=== PATIENT | female | born 1990 | race Caucasian/White ===

== ENCOUNTER 2016-12-06 08:26 | Emergency (ER) | payer OTHER ==
[2016-12-06] MEDS ORDERED: ONDANSETRON 4 MG/2 ML VIAL IVP STA (08:46)
[2016-12-06] MEDS ORDERED: SODIUM CHLORIDE 0.9% 1,000 ML IV STA ×2 (08:46)
[2016-12-06] MEDS ORDERED: HYDROmorphone 1 MG/ML 1 ML SYRINGE IVP STA (08:46)
--- NOTE | 2016-12-06 08:48 | ED ---
General Adult HPI <Otis Husain - Last Filed: 12/06/16 12:07> - General Source: patient, RN notes reviewed Mode of arrival: ambulatory Limitations: no limitations <Sanjay Guerra - Last Filed: 12/06/16 12:48> - General Chief complaint: Abdominal Pain Stated complaint: ABDOMINAL PAIN Time Seen by Provider: 12/06/16 08:38 - History of Present Illness Initial comments: Patient is a 26-year-old female who presents emergency room today with chief complaint of right lower quadrant pain that started approximately 2 AM. She does admit to a "sharp" type pain located in the right lower quadrant. Denies radiation. Currently rates an 07/05. States did have similar pain once in the past with an ovarian cyst. States this does feel worse. Patient also admits that she's noticed some swelling to her hands and legs bilaterally over the last 2-3 days. Patient does admit to feeling nauseous. She denies any other complaints currently. Patient denies any recent fever, chills, shortness of breath, chest pain, back pain, vomiting, numbness or tingling, dysuria or hematuria, constipation or diarrhea, headaches or visual changes, or any other complaints. (Sanjay Guerra) - Related Data Previous Rx's Medication Instructions Recorded Nitrofurantoin Monohyd/M-Cryst 100 mg PO Q12HR #14 cap 12/06/16 [Macrobid] Ondansetron Odt [Zofran ODT] 4 mg PO Q8HR PRN #15 tab 12/06/16 Allergies Allergy/AdvReac Type Severity Reaction Status Date / Time No Known Allergies Allergy Verified 12/06/16 08:51 Review of Systems ROS Other: All systems not noted in ROS Statement are negative. <Otis Husain - Last Filed: 12/06/16 12:07> ROS Other: All systems not noted in ROS Statement are negative. <Sanjay Guerra - Last Filed: 12/06/16 12:48> ROS Statement: Those systems with pertinent positive or pertinent negative responses have been documented in the HPI. Past Medical History Past Medical History: Asthma, Deep Vein Thrombosis (DVT), Osteoarthritis (OA) Additional Past Medical History / Comment(s): HX OF MIGRAINES, DVT LEFT GROIN ( 2009), ACTIVITY INDUCED ASTHMA (NO RX), BACK PROBLEMS. History of Any Multi-Drug Resistant Organisms: None Reported Past Surgical History: Adenoidectomy, Breast Surgery, Orthopedic Surgery, Tonsillectomy, Tubal Ligation Additional Past Surgical History / Comment(s): BREAST Bx, MULTIPLE KNEE SURGERYS. Past Anesthesia/Blood Transfusion Reactions: Postoperative Nausea & Vomiting ( PONV) Past Psychological History: Anxiety Smoking Status: Light tobacco smoker Past Alcohol Use History: Rare Additional Past Alcohol Use History / Comment(s): SMOKES 5-6 CIGARETTES / DAYSTARTED SMOKING AT 16 YRS OLD. Past Drug Use History: None Reported - Past Family History Mother Family Medical History: No Reported History, Hypertension <Sanjay Guerra - Last Filed: 12/06/16 12:48> General Exam <Otis Husain - Last Filed: 12/06/16 12:07> Limitations: no limitations <Sanjay Guerra - Last Filed: 12/06/16 12:48> - General Exam Comments Initial Comments: General: The patient is awake and alert, in no distress, and does not appear acutely ill. Eye: Pupils are equal, round and reactive to light, extra-ocular movements are intact. No nystagmus. There is normal conjunctiva bilaterally. No signs of icterus. Ears, nose, mouth and throat: There are moist mucous membranes and no oral lesions. Neck: The neck is supple, there is no tenderness or JVD. Cardiovascular: There is a regular rate and rhythm. No murmur, rub or gallop is appreciated. Respiratory: Lungs are clear to auscultation, respirations are non-labored, breath sounds are equal. No wheezes, stridor, rales, or rhonchi. Gastrointestinal: Abdomen appears distended. Normal bowel sounds. Abdomen soft on palpation. Patient does have mild tenderness right lower quadrant. No rebound tenderness. No guarding. No CVA tenderness. Musculoskeletal: Normal ROM, no tenderness. Strength 5/5. Sensation intact. Pulses equal bilaterally 2+. Neurological: A&O x 3. CN II-XII intact, There are no obvious motor or sensory deficits. Coordination appears grossly intact. Speech is normal. Skin: Skin is warm and dry and no rashes or lesions are noted. Psychiatric: Cooperative, appropriate mood & affect, normal judgment. (Sanjay Guerra) Medical Decision Making - Lab Data Result diagrams: 12/06/16 09:21 12/06/16 09:21 <Otis Husain - Last Filed: 12/06/16 12:07> - Lab Data Result diagrams: 12/06/16 09:21 12/06/16 09:21 <Sanjay Guerra - Last Filed: 12/06/16 12:48> - Medical Decision Making The patient was seen and examined. All diagnostics were reviewed. I have discussed the case with the PA and agree with the findings as documented. (Otis Husain) Patient's CAT scan was reviewed shows no evidence of acute appendicitis. Results were discussed with the patient. Patient has declined pelvic exam here in the emergency room. Patient's urinalysis does reveal a few white cells. Will be started on antibiotics cover for urinary tract infection. She is advised follow-up the family doctor over the next 2 days. Advised return if any symptoms increase or worsen or for any other concerns. (Sanjay Guerra) - Lab Data Lab Results 12/06/16 12/06/16 12/06/16 Range/Units 09:21 09:21 09:21 WBC 5.0 (3.8-10.6) k/uL RBC 4.17 (3.80-5.40) m/uL Hgb 13.4 (11.4-16.0) gm/dL Hct 40.5 (34.0-46.0) % MCV 97.1 (80.0-100.0) fL MCH 32.2 (25.0-35.0) pg MCHC 33.1 (31.0-37.0) g/dL RDW 12.7 (11.5-15.5) % Plt Count 226 (150-450) k/uL Neutrophils % (Manual) 53.0 % Lymphocytes % (Manual) 39.0 % Monocytes % (Manual) 8.0 % Neutrophils # (Manual) 2.7 (1.3-7.7) k/uL Lymphocytes # (Manual) 2.0 (1.0-4.8) k/uL Monocytes # (Manual) 0.4 (0-1.0) k/uL Nucleated RBCs 0 (0-0) /100 WBC Manual Slide Review Performed Sodium 140 (137-145) mmol/L Potassium 4.0 (3.5-5.1) mmol/L Chloride 105 (98-107) mmol/L Carbon Dioxide 26 (22-30) mmol/L Anion Gap 9 mmol/L BUN 14 (7-17) mg/dL Creatinine 0.68 (0.52-1.04) mg/dL Est GFR (MDRD) Af Amer >60 (>60 ml/min/1.73 sqM) Est GFR (MDRD) Non-Af >60 (>60 ml/min/1.73 sqM) Glucose 88 (74-99) mg/dL Plasma Lactic Acid Enzo (0.7-2.0) mmol/L Calcium 9.5 (8.4-10.2) mg/dL Total Bilirubin 0.5 (0.2-1.3) mg/dL AST 13 L (14-36) U/L ALT 24 (9-52) U/L Alkaline Phosphatase 46 (38-126) U/L Total Protein 6.8 (6.3-8.2) g/dL Albumin 4.2 (3.5-5.0) g/dL Amylase 34 (30-110) U/L Lipase 110 (23-300) U/L Urine Color Urine Appearance (Clear) Urine pH (5.0-8.0) Ur Specific [place] (1.001-1.035) Urine Protein (Negative) Urine Glucose (UA) (Negative) Urine Ketones (Negative) Urine Blood (Negative) Urine Nitrate (Negative) Urine Bilirubin (Negative) Urine Urobilinogen (<2.0) mg/dL Ur Leukocyte Esterase (Negative) Urine RBC (0-5) /hpf Urine WBC (0-5) /hpf Ur Squamous Epith Cells (0-4) /hpf Urine Bacteria (None) /hpf Hyaline Casts (0-2) /lpf Urine Mucus (None) /hpf Urine HCG, Qual Not Detected (Not Detectd) 12/06/16 12/06/16 Range/Units 09:21 09:21 WBC (3.8-10.6) k/uL RBC (3.80-5.40) m/uL Hgb (11.4-16.0) gm/dL Hct (34.0-46.0) % MCV (80.0-100.0) fL MCH (25.0-35.0) pg MCHC (31.0-37.0) g/dL RDW (11.5-15.5) % Plt Count (150-450) k/uL Neutrophils % (Manual) % Lymphocytes % (Manual) % Monocytes % (Manual) % Neutrophils # (Manual) (1.3-7.7) k/uL Lymphocytes # (Manual) (1.0-4.8) k/uL Monocytes # (Manual) (0-1.0) k/uL Nucleated RBCs (0-0) /100 WBC Manual Slide Review Sodium (137-145) mmol/L Potassium (3.5-5.1) mmol/L Chloride (98-107) mmol/L Carbon Dioxide (22-30) mmol/L Anion Gap mmol/L BUN (7-17) mg/dL Creatinine (0.52-1.04) mg/dL Est GFR (MDRD) Af Amer (>60 ml/min/1.73 sqM) Est GFR (MDRD) Non-Af (>60 ml/min/1.73 sqM) Glucose (74-99) mg/dL Plasma Lactic Acid Enzo <0.5 L (0.7-2.0) mmol/L Calcium (8.4-10.2) mg/dL Total Bilirubin (0.2-1.3) mg/dL AST (14-36) U/L ALT (9-52) U/L Alkaline Phosphatase (38-126) U/L Total Protein (6.3-8.2) g/dL Albumin (3.5-5.0) g/dL Amylase (30-110) U/L Lipase (23-300) U/L Urine Color Yellow Urine Appearance Cloudy H (Clear) Urine pH 5.0 (5.0-8.0) Ur Specific [place] 1.021 (1.001-1.035) Urine Protein Negative (Negative) Urine Glucose (UA) Negative (Negative) Urine Ketones Negative (Negative) Urine Blood Negative (Negative) Urine Nitrate Negative (Negative) Urine Bilirubin Negative (Negative) Urine Urobilinogen <2.0 (<2.0) mg/dL Ur Leukocyte Esterase Large H (Negative) Urine RBC 3 (0-5) /hpf Urine WBC 8 H (0-5) /hpf Ur Squamous Epith Cells 7 H (0-4) /hpf Urine Bacteria Rare H (None) /hpf Hyaline Casts 1 (0-2) /lpf Urine Mucus Rare H (None) /hpf Urine HCG, Qual (Not Detectd) Disposition <Otis Husain - Last Filed: 12/06/16 12:07> Time of Disposition: 12:47 <Sanjay Guerra - Last Filed: 12/06/16 12:48> Clinical Impression: Abdominal pain, UTI (urinary tract infection) Disposition: HOME SELF-CARE Condition: Good Instructions: Abdominal Pain (ED) Additional Instructions: Please use medication as discussed. Please follow-up with family doctor in the next 2 days of symptoms have not improved. Please return to emergency room if the symptoms increase or worsen or for any other concerns. Prescriptions: Nitrofurantoin Monohyd/M-Cryst [Macrobid] 100 mg PO Q12HR #14 cap Ondansetron Odt [Zofran ODT] 4 mg PO Q8HR PRN #15 tab PRN Reason: Nausea
[2016-12-06 09:46] LABS: Appearance,Urine Cloudy (Clear); Bacteria,Urine Rare /hpf; Bilirubin,Urine Negative (Negative); Glucose,Urine (UA) Negative (Negative); Ketones,Urine Negative (Negative); Leukocyte Esterase,Urine Large (Negative); Mucus,Urine Rare /hpf; Nitrite,Urine Negative (Negative); Particle Count 8693; Protein,Urine Negative (Negative); RBC,Urine 3 /hpf (0-5); Specific Gravity,Urine 1.021 (1.001-1.035); Squamous Epithelial Cell,Urine 7 /hpf (0-4); UA Billing (MACRO vs. MICRO) MICRO; Urobilinogen,Urine <2.0 mg/dL (<2.0); WBC,Urine 8 /hpf (0-5)
[2016-12-06 09:49] LABS: ALT 24 U/L (9-52); AST 13 U/L (14-36); Alkaline Phosphatase 46 U/L (38-126); Amylase 34 U/L (30-110); Anion Gap 9 mmol/L; Blood Urea Nitrogen 14 mg/dL (7-17); Calcium 9.5 mg/dL (8.4-10.2); Carbon Dioxide 26 mmol/L (22-30); Chloride 105 mmol/L (98-107); Glucose 88 mg/dL (74-99); Non-African American GFR(MDRD) >60 (>60 ml/min/1.73 sqM); Sodium 140 mmol/L (137-145); Total Bilirubin 0.5 mg/dL (0.2-1.3); Total Protein 6.8 g/dL (6.3-8.2)
[2016-12-06 09:50] LABS: Aty Lym Flag Slight; CH 33.5; CHCM 34.7; HCT 40.5 % (34.0-46.0); HDW 2.28; HGB 13.4 gm/dL (11.4-16.0); MCH 32.2 pg (25.0-35.0); MCHC 33.1 g/dL (31.0-37.0); MCV 97.1 fL (80.0-100.0); Mean Platelet Volume 8.1; RBC 4.17 m/uL (3.80-5.40); RDW 12.7 % (11.5-15.5); WBC (Perox) 5.08
[2016-12-06 10:18] LABS: Add Differential Manual Differential
[2016-12-06 10:21] LABS: Manual Review Performed; Nucleated Red Blood Cells 0 /100 WBC (0-0); Total Cells Counted 100
--- NOTE | 2016-12-06 11:04 | US ---
EXAMINATION TYPE: US abdomen APPY DATE OF EXAM: 12/06/2016 9:55 AM COMPARISON: NONE CLINICAL HISTORY: US. RLQ pain since 2 am this morning APPENDIX AP Diameter (normal < 6mm): 0.3 cm Measured outer wall to outer wall. Is the appendix seen in its entirety from the proximal cecum to distal end: yes Is the appendix compressible: yes Does the appendix wall appear hypervascular: no Is an appendicolith present: yes Is there inflammatory changes or free fluid present: no TECHNOLOGIST IMPRESSION: The appendix appears to be visualized and appears normal. IMPRESSION: 1. Technologist reports an appendicolith. Additional findings to suggest acute appendicitis however n ot identified. Clinical decision for management should be based on the clinical findings.
--- NOTE | 2016-12-06 11:05 | US ---
EXAMINATION TYPE: US transvaginal DATE OF EXAM: 12/06/2016 10:21 AM COMPARISON: Prior on PACs CLINICAL HISTORY: US. Patient awoke at 2 am with RLQ pain. TECHNIQUE: Transvaginal (TV) Date of LMP: Unknown; sometime in mid October EXAM MEASUREMENTS: Uterus: 9.5 x 5.1 x 6.5 cm Endometrial Stripe: 0.5 cm Right Ovary: 2.9 x 2.9 x 2.1 cm Left Ovary: Not seen st this time FINDINGS: TECHNOLOGIST IMPRESSION: Limited to bladder fill and bowel gas. 1. Uterus: Anteverted Appear wnl 2. Endometrium: Appear wnl 3. Right Ovary: Obscured by overlying bowel gas, seen TA and portions visualized appear wnl 4. Left Ovary: not seen due to overlying bowel gas Spectral, color and waveform doppler imaging shows good arterial and venous flow within the right o vary; there is no evidence for ovarian torsion. 5. Bilateral Adnexa: Appear wnl 6. Posterior cul-de-sac: Small traces of free fluid noted IMPRESSION: 1. Nabothian cyst at the cervix. 2. Normal transvaginal pelvic ultrasound Normal Values: Uterine Length: < 10cm Endometrium: Proliferative (Day 6 ? 14): 4 ? 6mm Secretory (Day 15 ? 28): 7 ? 14mm Post Menopausal (and not symptomatic): up to 8mm Post Menopausal (with vaginal bleeding): upper limits <5mm Post Menopausal with HRT: upper limits 8 - 15mm Post Menopausal with tamoxifen: < 6mm (although 50% of those receiving tamoxifen have been reported t o have thickness >8mm)
[2016-12-06] MEDS ORDERED: RX INFO: IV CONTRAST WAS GIVEN 1 EACH MISC MISCELLANE PRN (11:42)
--- NOTE | 2016-12-06 12:39 | CT ---
EXAMINATION TYPE: CT abdomen pelvis w con DATE OF EXAM: 12/06/2016 12:23 PM COMPARISON: NONE INDICATION: Right lower quadrant pain and right groin pain. DLP: 348.9 mGycm, Automated exposure control for dose reduction was used. CONTRAST: 100 mL of Omnipaque 300. Study performed without Oral Contrast TECHNIQUE: Axial images were obtained from above the diaphragm to the pubic rami in the axial plane a t 5 mm thick sections. Reconstructed images are reviewed on the computer in the coronal plane. FINDINGS: Limited CT sections are obtained the lung bases. The lung bases are clear. CT ABDOMEN: Liver: Normal Spleen: Normal Pancreas: Normal Adrenal glands: The adrenal glands are normal. Gallbladder: Normal Kidneys: No masses are evident. No hydronephrosis is present. No cysts are present. Delayed images were obtained through the kidneys, which remain unremarkable. Aorta: Normal Inferior vena cava: Normal. CT PELVIS: Loops of bowel within the abdomen and pelvis are normal. Appendix: Normal as visualized. Urinary bladder: Normal. Genitourinary structures: Uterus is unremarkable. Adnexal regions are clear. No free fluid is within the pelvis. Osseous structures: No suspicious lytic or sclerotic lesions. IMPRESSIONS: 1. Unremarkable CT abdomen pelvis. The appendix appears normal.
[2016-12-06 13:01] VITALS: BP 105/67; PULSE 71; RESP 16; TEMP 97
== END 2016-12-06 12:57 | disposition home or self-care (01) ==
LOC: EC 08:26
DX: N39.0 Urinary tract infection, site not specified (principal); N88.8 Other specified noninflammatory disorders of cervix uteri; F17.200 Nicotine dependence, unspecified, uncomplicated
CPT/HCPCS: 99284; 96374; 96375; 96361 ×4; 36415; 80053; 82150; 83605; 83690; 85025; 81001; 81025; 93976; 76705; 76830; 74177; J2405; J1170; Q9967

== ENCOUNTER 2017-02-18 20:40 | Emergency (ER) | payer OTHER ==
[2017-02-18] MEDS ORDERED: KETOROLAC 30 MG/ML 1 ML VIAL IVP STA (22:31)
[2017-02-18] MEDS ORDERED: MORPHINE SULFATE 4 MG/ML SYRINGE IV STA (22:31)
[2017-02-18] MEDS ORDERED: SODIUM CHLORIDE 0.9% 1,000 ML IV STA (22:31)
--- NOTE | 2017-02-18 22:33 | ED ---
General Adult HPI - General Chief complaint: Chest Pain Stated complaint: Diff breathing/Chest Pain Time Seen by Provider: 02/18/17 22:19 Source: patient, RN notes reviewed, old records reviewed Mode of arrival: ambulatory Limitations: no limitations - History of Present Illness Initial comments: This is a 26-year-old female ER for evaluation today. Patient comes in the ER for evaluation of multiple complaints, patient has history of asthma, history of blood clot during denies history of at this time. Patient has mild shortness of breath with anterior and substernal chest pain. So that she is never experienced before. Patient also complains of right shoulder and right arm weakness. She is able to move right and does have sensation but is decreased strength compared to left arm. No trauma no headaches and no other neurological complaints. No new medications or change medications patient denies drugs or alcohol - Related Data Previous Rx's Medication Instructions Recorded Nitrofurantoin Monohyd/M-Cryst 100 mg PO Q12HR #14 cap 12/06/16 [Macrobid] Ondansetron Odt [Zofran ODT] 4 mg PO Q8HR PRN #15 tab 12/06/16 Allergies Allergy/AdvReac Type Severity Reaction Status Date / Time No Known Allergies Allergy Verified 12/06/16 08:51 Review of Systems ROS Statement: Those systems with pertinent positive or pertinent negative responses have been documented in the HPI. ROS Other: All systems not noted in ROS Statement are negative. Past Medical History Past Medical History: Asthma, Deep Vein Thrombosis (DVT), Rheumatoid Arthritis ( RA) Additional Past Medical History / Comment(s): HX OF MIGRAINES, DVT LEFT GROIN ( 2009), ACTIVITY INDUCED ASTHMA (NO RX), BACK PROBLEMS. childhood RA History of Any Multi-Drug Resistant Organisms: None Reported Past Surgical History: Adenoidectomy, Breast Surgery, Orthopedic Surgery, Tonsillectomy, Tubal Ligation Additional Past Surgical History / Comment(s): BREAST Bx, MULTIPLE BILAT KNEE SURGERYS. Past Anesthesia/Blood Transfusion Reactions: Postoperative Nausea & Vomiting ( PONV) Past Psychological History: Anxiety Smoking Status: Current every day smoker Past Alcohol Use History: Rare Additional Past Alcohol Use History / Comment(s): SMOKES 5-6 CIGARETTES / DAYSTARTED SMOKING AT 16 YRS OLD. Past Drug Use History: None Reported - Past Family History Mother Family Medical History: No Reported History, Hypertension General Exam Limitations: no limitations General appearance: alert, in no apparent distress Head exam: Present: atraumatic, normocephalic, normal inspection Eye exam: Present: normal appearance, PERRL, EOMI. Absent: scleral icterus, conjunctival injection, periorbital swelling ENT exam: Present: normal exam, mucous membranes moist Neck exam: Present: normal inspection. Absent: tenderness, meningismus, lymphadenopathy Respiratory exam: Present: normal lung sounds bilaterally. Absent: respiratory distress, wheezes, rales, rhonchi, stridor Cardiovascular Exam: Present: regular rate, normal rhythm, normal heart sounds. Absent: systolic murmur, diastolic murmur, rubs, gallop, clicks GI/Abdominal exam: Present: soft, normal bowel sounds. Absent: distended, tenderness, guarding, rebound, rigid Extremities exam: Present: normal inspection, full ROM, normal capillary refill. Absent: tenderness, pedal edema, joint swelling, calf tenderness Back exam: Present: normal inspection Neurological exam: Present: alert, oriented X3, CN II-XII intact Psychiatric exam: Present: normal affect, normal mood Skin exam: Present: warm, dry, intact, normal color. Absent: rash Course Vital Signs 02/18/17 02/19/17 02/19/17 20:49 00:08 00:18 Temperature 99.1 F Pulse Rate 80 80 80 Respiratory 16 Rate Blood Pressure 114/74 O2 Sat by Pulse 99 Oximetry - Reevaluation(s) Reevaluation #1: 02/19/17 00:52 Patient resting comfortably, states symptoms are resolved EKG Findings - EKG Comments: EKG Findings:: EKG shows normal sinus rhythm rate of 60, SC 1:30, QRS 92, QTC 418 Medical Decision Making - Medical Decision Making 26-year-old female year for evaluation of chest pain, substernal chest discomfort or weakness. Tetanus are normal at this point point, patient is resting comfortably states her symptoms have resolved Michelle discharge home, states she is tired and is catchup unrest - Lab Data Result diagrams: 02/18/17 23:00 02/18/17 23:00 Lab Results 02/18/17 02/18/17 02/18/17 Range/Units 23:00 23:00 23:00 WBC 4.0 (3.8-10.6) k/uL RBC 4.16 (3.80-5.40) m/uL Hgb 13.5 (11.4-16.0) gm/dL Hct 39.7 (34.0-46.0) % MCV 95.3 (80.0-100.0) fL MCH 32.3 (25.0-35.0) pg MCHC 33.9 (31.0-37.0) g/dL RDW 12.7 (11.5-15.5) % Plt Count 136 L (150-450) k/uL Neutrophils % (Manual) 40.0 % Lymphocytes % (Manual) 56.0 % Monocytes % (Manual) 4.0 % Neutrophils # (Manual) 1.6 (1.3-7.7) k/uL Lymphocytes # (Manual) 2.2 (1.0-4.8) k/uL Monocytes # (Manual) 0.2 (0-1.0) k/uL Nucleated RBCs 0 (0-0) /100 WBC Manual Slide Review Performed PT (9.0-12.0) sec INR (<1.1) APTT (22.0-30.0) sec D-Dimer (<0.60) mg/L FEU Sodium 141 (137-145) mmol/L Potassium 3.8 (3.5-5.1) mmol/L Chloride 107 (98-107) mmol/L Carbon Dioxide 24 (22-30) mmol/L Anion Gap 10 mmol/L BUN 11 (7-17) mg/dL Creatinine 0.60 (0.52-1.04) mg/dL Est GFR (MDRD) Af Amer >60 (>60 ml/min/1.73 sqM) Est GFR (MDRD) Non-Af >60 (>60 ml/min/1.73 sqM) Glucose 85 (74-99) mg/dL Calcium 8.7 (8.4-10.2) mg/dL Magnesium 1.8 (1.6-2.3) mg/dL Total Bilirubin 0.3 (0.2-1.3) mg/dL AST 22 (14-36) U/L ALT 22 (9-52) U/L Alkaline Phosphatase 40 (38-126) U/L Total Creatine Kinase 47 (30-135) U/L CK-MB (CK-2) <0.2 (0.0-2.4) ng/mL CK-MB (CK-2) Rel Index Troponin I <0.012 (0.000-0.034) ng/mL C-Reactive Protein 5.9 (<10.0) mg/L Total Protein 6.5 (6.3-8.2) g/dL Albumin 3.9 (3.5-5.0) g/dL Lipase 141 (23-300) U/L 02/18/17 Range/Units 23:00 WBC (3.8-10.6) k/uL RBC (3.80-5.40) m/uL Hgb (11.4-16.0) gm/dL Hct (34.0-46.0) % MCV (80.0-100.0) fL MCH (25.0-35.0) pg MCHC (31.0-37.0) g/dL RDW (11.5-15.5) % Plt Count (150-450) k/uL Neutrophils % (Manual) % Lymphocytes % (Manual) % Monocytes % (Manual) % Neutrophils # (Manual) (1.3-7.7) k/uL Lymphocytes # (Manual) (1.0-4.8) k/uL Monocytes # (Manual) (0-1.0) k/uL Nucleated RBCs (0-0) /100 WBC Manual Slide Review PT 10.9 (9.0-12.0) sec INR 1.1 (<1.1) APTT 26.1 (22.0-30.0) sec D-Dimer 0.27 (<0.60) mg/L FEU Sodium (137-145) mmol/L Potassium (3.5-5.1) mmol/L Chloride (98-107) mmol/L Carbon Dioxide (22-30) mmol/L Anion Gap mmol/L BUN (7-17) mg/dL Creatinine (0.52-1.04) mg/dL Est GFR (MDRD) Af Amer (>60 ml/min/1.73 sqM) Est GFR (MDRD) Non-Af (>60 ml/min/1.73 sqM) Glucose (74-99) mg/dL Calcium (8.4-10.2) mg/dL Magnesium (1.6-2.3) mg/dL Total Bilirubin (0.2-1.3) mg/dL AST (14-36) U/L ALT (9-52) U/L Alkaline Phosphatase (38-126) U/L Total Creatine Kinase (30-135) U/L CK-MB (CK-2) (0.0-2.4) ng/mL CK-MB (CK-2) Rel Index Troponin I (0.000-0.034) ng/mL C-Reactive Protein (<10.0) mg/L Total Protein (6.3-8.2) g/dL Albumin (3.5-5.0) g/dL Lipase (23-300) U/L - Radiology Data Radiology results: report reviewed (CT brain is negative for acute disase, CXR is negative), image reviewed Disposition Clinical Impression: Chest pain Disposition: HOME SELF-CARE Condition: Good Instructions: Chest Pain (ED) Referrals: Lynn Andrade MD [Primary Care Provider] - 1-2 days
[2017-02-18 23:29] LABS: Aty Lym Flag Slight; CH 32.9; CHCM 34.7; HCT 39.7 % (34.0-46.0); HDW 2.44; HGB 13.5 gm/dL (11.4-16.0); MCH 32.3 pg (25.0-35.0); MCHC 33.9 g/dL (31.0-37.0); MCV 95.3 fL (80.0-100.0); Mean Platelet Volume 8.1; RBC 4.16 m/uL (3.80-5.40); RDW 12.7 % (11.5-15.5); WBC (Perox) 4.34
[2017-02-18 23:35] LABS: INR 1.1 (<1.1); Partial Thromboplastin Time 26.1 sec (22.0-30.0); Prothrombin Time 10.9 sec (9.0-12.0)
--- NOTE | 2017-02-18 23:37 | CT ---
EXAM: CT Head Without Intravenous Contrast. CLINICAL HISTORY: Reason: Pain TECHNIQUE: Axial computed tomography images of the head/brain without intravenous contrast. CTDI is 57.40 mGy and DLP is 1029.90 mGy-cm This CT exam was performed using one or more of the following dose reduction techniques: automated exposure control, adjustment of the mA and/or kV according to patient size, and/or use of iterative reconstruction technique. COMPARISON: MRI brain on 11/24/2015 FINDINGS: Brain: No acute infarct or hemorrhage. No extra-axial fluid collection. No mass effect or midline shift. Ventricles and sulci: Normal. No ventriculomegaly or intraventricular hemorrhage. Skull: Normal. No bony lesion or fracture. Subcutaneous tissues: Normal. Sinuses: Normal. No air-fluid levels or mucosal thickening. Mastoid air cells: Normal. Orbits: Grossly unremarkable. IMPRESSION: No acute intracranial abnormality.
[2017-02-18 23:41] LABS: ALT 22 U/L (9-52); AST 22 U/L (14-36); Alkaline Phosphatase 40 U/L (38-126); Anion Gap 10 mmol/L; Blood Urea Nitrogen 11 mg/dL (7-17); C Reactive Protein 5.9 mg/L (<10.0); Calcium 8.7 mg/dL (8.4-10.2); Carbon Dioxide 24 mmol/L (22-30); Chloride 107 mmol/L (98-107); Glucose 85 mg/dL (74-99); Magnesium 1.8 mg/dL (1.6-2.3); Non-African American GFR(MDRD) >60 (>60 ml/min/1.73 sqM); Potassium 3.8 mmol/L (3.5-5.1); Sodium 141 mmol/L (137-145); Total Bilirubin 0.3 mg/dL (0.2-1.3); Total Protein 6.5 g/dL (6.3-8.2)
[2017-02-18 23:59] LABS: Creatine Kinase 47 U/L (30-135)
[2017-02-19] MEDS ORDERED: IPRATROPIUM-ALBUTEROL 3 ML NEB INHALATION STA (00:01)
[2017-02-19] MEDS ORDERED: ACETAMINOPHEN IV (For NPO) 1,000 MG in EMPTY BAG 1 BAG IVPB STA (00:02)
[2017-02-19] MEDS ORDERED: LORazepam 2 MG/ML SYRINGE IV STA (00:02)
[2017-02-19 00:12] LABS: Creatine Kinase MB <0.2 ng/mL (0.0-2.4); Troponin I <0.012 ng/mL (0.000-0.034)
[2017-02-19 00:33] LABS: Add Differential Manual Differential
[2017-02-19 00:36] LABS: Nucleated Red Blood Cells 0 /100 WBC (0-0); Total Cells Counted 100
[2017-02-19 00:37] LABS: Manual Review Performed
--- NOTE | 2017-02-19 00:43 | XR ---
EXAM: XR Chest, 2 Views. CLINICAL HISTORY: Reason: Pain TECHNIQUE: Frontal and lateral views of the chest. COMPARISON: None FINDINGS: Hardware: None. Lungs/pleura: Normal. No focal consolidation. No pleural effusion or pneumothorax. Heart/mediastinum: Normal. No cardiomegaly. Soft tissues: Unremarkable. Bones: No acute fracture. Upper abdomen: Normal. IMPRESSION: No acute disease.
[2017-02-19 01:34] VITALS: BP 110/72; PULSE 88; RESP 18; TEMP 98.7
== END 2017-02-19 01:33 | disposition home or self-care (01) ==
LOC: EC 20:40
DX: R07.2 Precordial pain (principal); R06.02 Shortness of breath; R29.898 Other symptoms and signs involving the musculoskeletal system; F17.210 Nicotine dependence, cigarettes, uncomplicated
CPT/HCPCS: 36415; 94640; 93005; 85379; 80053; 82550; 82553; 83690; 83735; 84484; 85025; 85610; 85730; 86140; 71020; 70450; 99285; 96365; 96375 ×2; 96361; J2060; J1885; J0131

== ENCOUNTER 2017-04-27 14:59 | Emergency (ER) | payer OTHER ==
[2017-04-27] MEDS ORDERED: SODIUM CHLORIDE 0.9% 1,000 ML IV ONE (17:14)
[2017-04-27] MEDS ORDERED: KETOROLAC 30 MG/ML 1 ML VIAL IVP STA (17:15)
--- NOTE | 2017-04-27 17:19 | ED ---
Abdominal Pain HPI - General Chief Complaint: Abdominal Pain Stated Complaint: back & abdominal pain Time Seen by Provider: 04/27/17 16:57 Source: patient, RN notes reviewed Mode of arrival: ambulatory Limitations: no limitations - History of Present Illness Initial Comments: Patient is a 26-year-old female presents to the emergency room for evaluation of abdominal pain. Patient states pain began last night and progressed this morning. Patient states took extra strength Tylenol with no relief of symptoms. Patient states she had a low-grade fever last night. Patient states she is getting the shakes from pain. Patient states she's nauseous but denies vomiting. Patient states she is having pain in her right lower quadrant. Patient states that today the pain is now radiating into her back. Patient denies history of kidney stones. Patient denies pain or burning during urination, trouble urinating or blood in urine. Patient states she has a history of chlamydia that was treated. Patient states she has history tubal ligation. Patient denies any possibility of being . Patient denies history of ovarian cysts. Patient states a few years ago she had a slightly inflamed appendix but it was never removed. Patient states pain feels similar to when her appendix was inflamed. Patient denies chest pain or shortness of breath. Denies headache or dizziness. Patient states her last menstrual cycle was 04/19 - 04/23. - Related Data Home Medications Medication Instructions Recorded Confirmed Acetaminophen [Tylenol] 1,000 mg PO BID PRN 04/27/17 04/27/17 Escitalopram [Lexapro] 5 mg PO HS 04/27/17 04/27/17 Previous Rx's Medication Instructions Recorded Doxycycline [Vibramycin] 100 mg PO Q12HR 14 Days 04/27/17 Allergies Allergy/AdvReac Type Severity Reaction Status Date / Time No Known Allergies Allergy Verified 04/27/17 17:04 Review of Systems ROS Statement: Those systems with pertinent positive or pertinent negative responses have been documented in the HPI. ROS Other: All systems not noted in ROS Statement are negative. Past Medical History Past Medical History: Asthma, Deep Vein Thrombosis (DVT), Rheumatoid Arthritis ( RA) Additional Past Medical History / Comment(s): HX OF MIGRAINES, DVT LEFT GROIN ( 2009), ACTIVITY INDUCED ASTHMA (NO RX), BACK PROBLEMS. childhood RA History of Any Multi-Drug Resistant Organisms: None Reported Past Surgical History: Adenoidectomy, Breast Surgery, Orthopedic Surgery, Tonsillectomy, Tubal Ligation Additional Past Surgical History / Comment(s): BREAST Bx, MULTIPLE BILAT KNEE SURGERYS. Past Anesthesia/Blood Transfusion Reactions: Postoperative Nausea & Vomiting ( PONV) Past Psychological History: Anxiety Smoking Status: Current every day smoker Past Alcohol Use History: Rare Additional Past Alcohol Use History / Comment(s): SMOKES 5-6 CIGARETTES / DAYSTARTED SMOKING AT 16 YRS OLD. Past Drug Use History: None Reported - Past Family History Mother Family Medical History: No Reported History, Hypertension General Exam - General Exam Comments Initial Comments: sitting in exam room, no acute distress. Limitations: no limitations General appearance: alert, in no apparent distress Head exam: Present: atraumatic, normocephalic, normal inspection Eye exam: Present: normal appearance ENT exam: Present: normal exam, mucous membranes dry, mucous membranes moist, TM 's normal bilaterally Neck exam: Present: normal inspection Respiratory exam: Present: normal lung sounds bilaterally. Absent: respiratory distress Cardiovascular Exam: Present: regular rate, normal rhythm, normal heart sounds GI/Abdominal exam: Present: soft, tenderness (tenderness on palpating over right lower quadrant), normal bowel sounds. Absent: distended, guarding, rebound, rigid External exam: Present: normal external exam Speculum exam: Present: vaginal discharge By manual exam: Present: cervical motion tenderness, adnexal tenderness (right) Extremities exam: Present: normal inspection Back exam: Present: normal inspection Neurological exam: Present: alert, oriented X3, CN II-XII intact, normal gait Psychiatric exam: Present: normal affect, normal mood Skin exam: Present: warm, dry, intact, normal color. Absent: rash Course Vital Signs 04/27/17 04/27/17 04/27/17 15:16 18:00 19:19 Temperature 98.2 F 97.5 F L Pulse Rate 87 69 77 Respiratory 16 18 18 Rate Blood Pressure 123/79 123/79 128/91 O2 Sat by Pulse 99 100 99 Oximetry Medical Decision Making - Medical Decision Making patient is a 26-year-old female presents to emergency him for violation of right upper quadrant pain that began last night. Labs returning findings. Urinalysis contaminated. Pelvic exam significant for cervical motion tenderness and right adnexal tenderness. Ultrasound negative for appendicitis, ovarian torsion or ovarian cyst. Will treat patient for PID due to symptoms. Advised patient to follow-up with [facility]. Patient states she understands everything that was discussed with her. Return parameters discussed. Case discussed with Dr. Alexis. - Lab Data Result diagrams: 04/27/17 17:09 04/27/17 17:09 Lab Results 04/27/17 04/27/17 04/27/17 Range/Units 17:09 17:09 17:09 WBC 7.0 (3.8-10.6) k/uL RBC 4.36 (3.80-5.40) m/uL Hgb 14.6 (11.4-16.0) gm/dL Hct 43.5 (34.0-46.0) % MCV 99.8 (80.0-100.0) fL MCH 33.4 (25.0-35.0) pg MCHC 33.5 (31.0-37.0) g/dL RDW 13.4 (11.5-15.5) % Plt Count 279 (150-450) k/uL Neutrophils % (Manual) 70.0 % Band Neutrophils % 1.0 % Lymphocytes % (Manual) 24.0 % Monocytes % (Manual) 4.0 % Eosinophils % (Manual) 1.0 % Neutrophils # (Manual) 5.0 (1.3-7.7) k/uL Lymphocytes # (Manual) 1.7 (1.0-4.8) k/uL Monocytes # (Manual) 0.3 (0-1.0) k/uL Eosinophils # (Manual) 0.1 (0-0.7) k/uL Nucleated RBCs 0 (0-0) /100 WBC Manual Slide Review Performed RBC Morphology Normal Sodium 140 (137-145) mmol/L Potassium 4.7 (3.5-5.1) mmol/L Chloride 104 (98-107) mmol/L Carbon Dioxide 26 (22-30) mmol/L Anion Gap 10 mmol/L BUN 15 (7-17) mg/dL Creatinine 0.70 (0.52-1.04) mg/dL Est GFR (MDRD) Af Amer >60 (>60 ml/min/1.73 sqM) Est GFR (MDRD) Non-Af >60 (>60 ml/min/1.73 sqM) Glucose 92 (74-99) mg/dL Calcium 9.7 (8.4-10.2) mg/dL Total Bilirubin 0.9 (0.2-1.3) mg/dL AST 31 (14-36) U/L ALT 19 (9-52) U/L Alkaline Phosphatase 46 (38-126) U/L Total Protein 7.7 (6.3-8.2) g/dL Albumin 4.8 (3.5-5.0) g/dL Amylase 58 (30-110) U/L Lipase 169 (23-300) U/L Urine Color Urine Appearance (Clear) Urine pH (5.0-8.0) Ur Specific [place] (1.001-1.035) Urine Protein (Negative) Urine Glucose (UA) (Negative) Urine Ketones (Negative) Urine Blood (Negative) Urine Nitrite (Negative) Urine Bilirubin (Negative) Urine Urobilinogen (<2.0) mg/dL Ur Leukocyte Esterase (Negative) Urine RBC (0-5) /hpf Urine WBC (0-5) /hpf Ur Squamous Epith Cells (0-4) /hpf Urine Bacteria (None) /hpf Urine Mucus (None) /hpf Urine HCG, Qual (Not Detectd) 04/27/17 04/27/17 Range/Units 17:09 17:09 WBC (3.8-10.6) k/uL RBC (3.80-5.40) m/uL Hgb (11.4-16.0) gm/dL Hct (34.0-46.0) % MCV (80.0-100.0) fL MCH (25.0-35.0) pg MCHC (31.0-37.0) g/dL RDW (11.5-15.5) % Plt Count (150-450) k/uL Neutrophils % (Manual) % Band Neutrophils % % Lymphocytes % (Manual) % Monocytes % (Manual) % Eosinophils % (Manual) % Neutrophils # (Manual) (1.3-7.7) k/uL Lymphocytes # (Manual) (1.0-4.8) k/uL Monocytes # (Manual) (0-1.0) k/uL Eosinophils # (Manual) (0-0.7) k/uL Nucleated RBCs (0-0) /100 WBC Manual Slide Review RBC Morphology Sodium (137-145) mmol/L Potassium (3.5-5.1) mmol/L Chloride (98-107) mmol/L Carbon Dioxide (22-30) mmol/L Anion Gap mmol/L BUN (7-17) mg/dL Creatinine (0.52-1.04) mg/dL Est GFR (MDRD) Af Amer (>60 ml/min/1.73 sqM) Est GFR (MDRD) Non-Af (>60 ml/min/1.73 sqM) Glucose (74-99) mg/dL Calcium (8.4-10.2) mg/dL Total Bilirubin (0.2-1.3) mg/dL AST (14-36) U/L ALT (9-52) U/L Alkaline Phosphatase (38-126) U/L Total Protein (6.3-8.2) g/dL Albumin (3.5-5.0) g/dL Amylase (30-110) U/L Lipase (23-300) U/L Urine Color Yellow Urine Appearance Cloudy H (Clear) Urine pH 5.5 (5.0-8.0) Ur Specific [place] 1.030 (1.001-1.035) Urine Protein Trace H (Negative) Urine Glucose (UA) Negative (Negative) Urine Ketones Negative (Negative) Urine Blood Negative (Negative) Urine Nitrite Negative (Negative) Urine Bilirubin Negative (Negative) Urine Urobilinogen 2.0 (<2.0) mg/dL Ur Leukocyte Esterase Large H (Negative) Urine RBC 5 (0-5) /hpf Urine WBC 10 H (0-5) /hpf Ur Squamous Epith Cells 19 H (0-4) /hpf Urine Bacteria Moderate H (None) /hpf Urine Mucus Many H (None) /hpf Urine HCG, Qual Not Detected (Not Detectd) - Radiology Data Radiology results: report reviewed, image reviewed Disposition Clinical Impression: PID (pelvic inflammatory disease) Disposition: HOME SELF-CARE Condition: Good Instructions: Pelvic Inflammatory Disease (ED) Additional Instructions: Take antibiotics as directed. Please follow-up with [facility] or primary care provider in 24-48 hours. If any new symptom arises or symptoms worsen, return to ER as soon as possible. Prescriptions: Doxycycline [Vibramycin] 100 mg PO Q12HR 14 Days Referrals: Lynn Andrade MD [Primary Care Provider] - 1-2 days Time of Disposition: 19:31
[2017-04-27 17:34] LABS: Appearance,Urine Cloudy (Clear); Bacteria,Urine Moderate /hpf; Bilirubin,Urine Negative (Negative); Glucose,Urine (UA) Negative (Negative); Ketones,Urine Negative (Negative); Leukocyte Esterase,Urine Large (Negative); Mucus,Urine Many /hpf; Nitrite,Urine Negative (Negative); PH, Urine 5.5 (5.0-8.0); Particle Count 17307; Protein,Urine Trace (Negative); RBC,Urine 5 /hpf (0-5); Squamous Epithelial Cell,Urine 19 /hpf (0-4); UA Billing (MACRO vs. MICRO) MICRO; WBC,Urine 10 /hpf (0-5)
[2017-04-27 17:38] LABS: ALT 19 U/L (9-52); AST 31 U/L (14-36); Alkaline Phosphatase 46 U/L (38-126); Amylase 58 U/L (30-110); Anion Gap 10 mmol/L; Blood Urea Nitrogen 15 mg/dL (7-17); Calcium 9.7 mg/dL (8.4-10.2); Carbon Dioxide 26 mmol/L (22-30); Chloride 104 mmol/L (98-107); Glucose 92 mg/dL (74-99); Non-African American GFR(MDRD) >60 (>60 ml/min/1.73 sqM); Potassium 4.7 mmol/L (3.5-5.1); Sodium 140 mmol/L (137-145); Total Bilirubin 0.9 mg/dL (0.2-1.3); Total Protein 7.7 g/dL (6.3-8.2)
[2017-04-27 17:48] LABS: Aty Lym Flag Slight; CH 33.5; CHCM 33.7; HCT 43.5 % (34.0-46.0); HDW 2.24; HGB 14.6 gm/dL (11.4-16.0); MCH 33.4 pg (25.0-35.0); MCHC 33.5 g/dL (31.0-37.0); MCV 99.8 fL (80.0-100.0); Mean Platelet Volume 7.7; RBC 4.36 m/uL (3.80-5.40); RDW 13.4 % (11.5-15.5); WBC (Perox) 7.11
[2017-04-27] MEDS ORDERED: ACETAMINOPHEN TAB 325 MG TAB PO STA (18:10)
[2017-04-27 18:15] VITALS: RESP 18
[2017-04-27 18:18] LABS: Add Differential Manual Differential
[2017-04-27 18:20] LABS: Nucleated Red Blood Cells 0 /100 WBC (0-0); Total Cells Counted 100
[2017-04-27 18:21] LABS: Manual Review Performed; RBC Morphology Normal
--- NOTE | 2017-04-27 18:43 | US ---
EXAMINATION TYPE: US abdomen APPY DATE OF EXAM: 04/27/2017 COMPARISON: US and CT CLINICAL HISTORY: Pain. RLQ pain x 1 day APPENDIX AP Diameter (normal < 6mm): 4 mm Measured outer wall to outer wall. Is the appendix seen in its entirety from the proximal cecum to distal end: Yes Is the appendix compressible: Yes Does the appendix wall appear hypervascular: No Is an appendicolith present: No Is there inflammatory changes or free fluid present: No IMPRESSION: 1. Normal appendix. No changes to suggest acute appendicitis.
--- NOTE | 2017-04-27 18:58 | US ---
EXAMINATION TYPE: US transvaginal DATE OF EXAM: 04/27/2017 COMPARISON: CT and US CLINICAL HISTORY: Pain. RLQ pain x 1 day TECHNIQUE: Transvaginal (TV) Date of LMP: 04/16/2017 EXAM MEASUREMENTS: Uterus: 9.8 x 4.9 x 6.0 cm Endometrial Stripe: 0.8 cm Right Ovary: 2.6 X 1.9 X 1.8 cm Left Ovary: 3.2 X 2.4 X 2.7 cm 1. Uterus: Anteverted wnl 2. Endometrium: wnl 3. Right Ovary: wnl 4. Left Ovary: wnl Spectral, color and waveform doppler imaging shows good arterial and venous flow within the ovaries ; there is no evidence for ovarian torsion. 5. Bilateral Adnexa: wnl 6. Posterior cul-de-sac: wnl Follicles on the bilateral ovaries. IMPRESSION: Normal pelvic ultrasound
[2017-04-27 19:20] VITALS: BP 128/91; PULSE 77; TEMP 97.5
[2017-04-27] MEDS ORDERED: DOXYCYCLINE 50 MG CAP PO STA (19:33)
[2017-04-27] MEDS ORDERED: cefTRIAXone 250 MG VIAL IM STA (19:33)
== END 2017-04-27 19:53 | disposition home or self-care (01) ==
LOC: EC 14:59
DX: N73.9 Female pelvic inflammatory disease, unspecified (principal); R11.0 Nausea; F41.9 Anxiety disorder, unspecified; F17.210 Nicotine dependence, cigarettes, uncomplicated; Z79.899 Other long term (current) drug therapy
CPT/HCPCS: 36415; 80053; 87591; 87491; 82150; 83690; 85025; 81001; 81025; 87808; 87070; 87086; 93975; 76705; 76830; 99284; 96374; 96361; 96372; J0696; J1885; 87205

== ENCOUNTER → 2017-10-15 | Outpatient (CLI) | payer OTHER | END | disposition home or self-care (01) | LOC: LABWHC1 13:09 | PROVIDERS: ATTEND Obstetrics & Gynecology | DX: Z34.90 Encounter for supervision of normal pregnancy, unspecified, unspecified trimester (principal) | CPT/HCPCS: 36415; 84702 ==

== ENCOUNTER → 2019-01-15 | Outpatient (CLI) | payer OTHER ==
--- NOTE | 2019-01-15 17:13 | US ---
EXAMINATION TYPE: US pelvic complete DATE OF EXAM: 01/15/2019 COMPARISON: US, CT CLINICAL HISTORY: R10.2 Pelvic Pain. Patient stated has intermittent bilateral pelvic pain TECHNIQUE: Transabdominal (TA). Transabdominal sonographic images of the pelvis were acquired. Date of LMP: 12/19/2018 EXAM MEASUREMENTS: Uterus: 9.3 x 5.7 x 5.2 cm Endometrial Stripe: 0.5 cm Right Ovary: 2.3 x 1.8 x 1.4 cm Left Ovary: 3.5 x 2.6 x 2.0 cm 1. Uterus: Anteverted 2. Endometrium: thinner for Day 28 LMP 3. Right Ovary: multiple small follicles 4. Left Ovary: small follicles with largest = 1.0 x 0.9 x 0.8cm Spectral, color and waveform Doppler imaging shows good arterial and venous flow within the ovaries ; there is no evidence for ovarian torsion. 5. Bilateral Adnexa: wnl 6. Posterior cul-de-sac: very small amount of free fluid in posterior cul de sac = 1.5 x 0.9 x 0.6 x 0.523 = 0.4ml. IMPRESSION: 1. No suspicious acute pelvic abnormality.
== END | disposition home or self-care (01) ==
LOC: RADUSWWP 09:20
PROVIDERS: ATTEND Obstetrics & Gynecology
DX: R10.2 Pelvic and perineal pain (principal)
CPT/HCPCS: 76856

== ENCOUNTER → 2021-03-14 | Outpatient (CLI) | payer OTHER ==
[2021-03-14 19:22] LABS: Basophils # (A) 0.04 X 10*3/uL (0.00-0.10); Basophils % (A) 0.5 %; Eosinophils # (A) 0.06 X 10*3/uL (0.04-0.35); Eosinophils % (A) 0.8 %; HGB 12.3 g/dL (12.0-15.0); Lymphocytes # (A) 2.23 X 10*3/uL (0.90-5.00); Lymphocytes % (A) 30.3 %; MCH 32.9 pg (27.0-32.0); MCHC 33.2 g/dL (32.0-37.0); MCV 98.9 fL (80.0-97.0); Mean Platelet Volume 10.8 fL (9.5-12.2); Monocytes # (A) 0.56 X 10*3/uL (0.20-1.00); Monocytes % (A) 7.6 %; Neutrophils # (A) 4.44 X 10*3/uL (1.80-7.70); Neutrophils % (A) 60.5 %; Platelet Count 279 X 10*3/uL (140-440); RBC 3.74 X 10*6/uL (4.10-5.20); RDW 12.2 % (11.5-14.5); WBC 7.35 X 10*3/uL (4.50-10.00)
== END | disposition home or self-care (01) ==
LOC: LABWHC1 10:44
PROVIDERS: ATTEND Obstetrics & Gynecology
DX: Z01.818 Encounter for other preprocedural examination (principal)
CPT/HCPCS: 36415; 85025

== ENCOUNTER 2021-03-17 07:13 | Day surgery (SDC) | payer OTHER ==
[2021-03-14 10:08] VITALS: BMI 26.1
[~2021-03-17 07:13] MED LIST: Pre Op ABX Message 1 EACH MISC MISCELLANE ONE
[2021-03-17] MEDS ORDERED: LACTATED RINGERS 1,000 ML IV SCH (07:24)
[2021-03-17] MEDS ORDERED: DEXAMETHASONE SOD PHOSPHATE 4 MG/ML 1 ML VIAL IV ONE (07:24)
[2021-03-17] MEDS ORDERED: HYDROmorphone 0.5 MG/0.5 ML SYRINGE IVP PRN (07:24)
[2021-03-17] MEDS ORDERED: ONDANSETRON 4 MG/2 ML VIAL IVP ONE (07:24)
--- NOTE | 2021-03-17 07:33 | P.HPOB ---
History of Present Illness H&P Date: 03/17/21 Chief Complaint: Pelvic pain Vijaya is a 30-year-old female with history of pelvic pain. She has been having sharp and stabbing pelvic pain for almost 2 years. She complains of the pain gets its worst does not even allow her to get out of her bed when she is on her menses. She had a laparoscopic tubal ligation with Filshie clips and number of years ago and one clip appears to be out of the pelvis. This should not be causing her any pain and the location of the clip is not consistent with with her where her pain is at. She is a poor candidate due to her past history she has had a DVT in the past. She is scheduled for a diagnostic laparoscopy possible use of da Frances possible laparotomy. Risks/benefits/alternatives to this procedure were discussed with the patient in detail and all questions were answered for her prior to proceeding to the operating room. Risks did include but were not limited to bleeding and infection, damage to bladder or bowel, vascular injuries, nerve damage, potential need for further surgery. We'll make every effort to determine the source of pain as well as hopefully give first and relief particularly if there is endometriosis that can be desiccated. She is however aware that it is also possible that we do the laparoscopy and find out there is no clear source of her pain. Past Medical History Past Medical History: Asthma, Deep Vein Thrombosis (DVT), Fibromyalgia, Osteoarthritis (OA), Rheumatoid Arthritis (RA) Additional Past Medical History / Comment(s): MIGRAINES, DVT LEFT GROIN (2009), PAST HX ACTIVITY INDUCED ASTHMA ., HERNIATED DISC, BACK PAIN, ARTHRITIS IN BACK & KNEES. , CHILDHOOD R.A., PAINFUL MENSTRUAL PERIODS., ABDOMINAL PAIN. History of Any Multi-Drug Resistant Organisms: None Reported Past Surgical History: Adenoidectomy, Breast Surgery, Orthopedic Surgery, Tonsillectomy, Tubal Ligation Additional Past Surgical History / Comment(s): BREAST Bx, MULTIPLE BILAT KNEE SURGERYS., LEFT SHOULDER SURGERY Past Anesthesia/Blood Transfusion Reactions: Postoperative Nausea & Vomiting (PONV) Past Psychological History: Anxiety, Depression Smoking Status: Former smoker Past Alcohol Use History: Rare Additional Past Alcohol Use History / Comment(s): QUIT SMOKING 1 MONTH AGO (JANUARY 2021), STARTED SMOKING AT 16 YRS OLD. HX OF 5 CIGARETTES UP TO 1/2 PPD. Past Drug Use History: None Reported - Past Family History Mother Family Medical History: No Reported History, Hypertension Medications and Allergies Home Medications Medication Instructions Recorded Confirmed Type Acetaminophen [Tylenol Extra 500 mg PO DIRECTED PRN 03/14/21 03/14/21 History Strength] Allergies Allergy/AdvReac Type Severity Reaction Status Date / Time No Known Allergies Allergy Verified 03/14/21 09:58 Exam Osteopathic Statement: *. No significant issues noted on an osteopathic structural exam other than those noted in the History and Physical/Consult. - OBG Physical Exam Breast: both: normal (no masses) Abdomen: bowel sounds normal, no diffuse tenderness, no bruit present, no guarding noted, no hepatomegaly, no splenomegaly, no mass Vulva: both: normal Vagina: normal moisture, no discharge Cervix: no lesion, no discharge Uterus: normal size, normal contour Adnexa: both: normal Anus/Rectum: normal perianal skin, no rectal mass, no hemorrhoids, heme negative
[2021-03-17 07:37] VITALS: RESP 16
[2021-03-17] MEDS ORDERED: LIDOCAINE 1% (10MG/ML) FOR IV START INTRADERMA ONE (08:00)
[2021-03-17] MEDS ORDERED: SCOPOLAMINE 1.5MG/72HR PATCH TRANSDERM ONE (08:05)
[2021-03-17] MEDS ORDERED: ROCURONIUM 10 MG/ML (5 ML VIAL) IV ONE (09:07)
[2021-03-17] MEDS ORDERED: fentaNYL (PF) 50 MCG/ML 2 ML AMP ONE (09:07)
[2021-03-17] MEDS ORDERED: MIDAZOLAM 2 MG/2 ML VIAL ONE (09:07)
[2021-03-17] MEDS ORDERED: LIDOCAINE 1% INJ 10MG/ML (20 ML MDV) ONE (09:07)
[2021-03-17] MEDS ORDERED: SUCCINYLCHOLINE CHLORIDE 100 MG/5 ML SYR IV ONE (09:07)
[2021-03-17] MEDS ORDERED: ACETAMINOPHEN IV (For NPO) 1,000 MG/100 ML VIAL ONE (09:07)
[2021-03-17] MEDS ORDERED: PROPOFOL 10 MG/ML 20 ML VIAL IV ONE (09:07)
[2021-03-17] MEDS ORDERED: BUPIVACAINE (PF) 0.25% 30 ML VIAL SQ ONE ×2 (09:43→09:48)
--- NOTE | 2021-03-17 10:04 | P.OP ---
Date of Procedure: 03/17/21 Preoperative Diagnosis: Pelvic pain Postoperative Diagnosis: Same with fibroid uterus and suspected adenomyosis Procedure(s) Performed: Diagnostic laparoscopy with removal of displaced Filshie clip Anesthesia: KARLI Surgeon: Uriah Shaver Estimated Blood Loss (ml): 5 IV fluids (ml): 500 Urine output (ml): 20 Pathology: none sent Condition: stable Disposition: same day Operative Findings: Grossly Filshie clip was identified and easily removed with a grasper. Pelvis showed no evidence for endometriosis. Small likely 3 cm fibroid left fundus. Appendix appeared normal. No other adhesions. Uterus however with elevation displayed significant bogginess likely from adenomyosis Description of Procedure: Patient was taken to the operating suite where a general anesthetic was found be adequate. She was prepped and draped in the normal sterile fashion and placed in the dorsal lithotomy position. Initially a speculum was inserted in the vagina and anterior lip of cervix identified with a single-tooth tenaculum and dilated and a uterine manipulator was inserted then without difficulty. Red rubber catheter was used to drain the bladder urine at this point and other incidents removed. Gloves were changed and attention was turned to the abdominal portion procedure where 2 mL of quarter percent Marcaine was injected periumbilically. Through this injected anesthetic a 5 mm skin incision was m susan, and through this incision, under direct visualization with an optical trocar and sleeve, the camera was inserted. Once peritoneal placement was assured gas was allowed to fully slick abdomen and patient was then placed in steep Trendelenburg position. A second port and sleeve were then inserted through 5 [place] skin incision 3 cm above the pubic sepsis in the midline. Uterus was then elevated observations pelvis were noted. Small fibroid and suspected adenomyosis are identified. Fallopian tubes show displacement of left clip which was identified on the omentum and was removed with a grasper. Both tubes however have segmental disruption and appear to be close off and blunted at both proximal tips. Once this was completed all incidents removed and gas was allowed to expel from the abdomen. 5 deep breaths were provided during this process and then 4-0 Vicryl was used to close incision subcuticular. The remaining 8 mL of quarter percent Marcaine was then injected around these incisions. Incidents were then removed from the vagina. Sponge, lap, needle counts were all correct 2. Patient was then taken to the recovery room in stable and satisfactory condition. Plan - Discharge Summary Discharge Rx Participant: Yes New Discharge Prescriptions: New Ibuprofen [Motrin] 600 mg PO Q6HR PRN #30 tab PRN Reason: Pain HYDROcodone/APAP 5-325MG [[place] 5-325] 1 tab PO Q4HR PRN #30 tab PRN Reason: Pain No Action Acetaminophen [Tylenol Extra Strength] 500 mg PO DIRECTED PRN PRN Reason: Pain Discharge Medication List Acetaminophen [Tylenol Extra Strength] 500 mg PO DIRECTED PRN 03/14/21 [History] HYDROcodone/APAP 5-325MG [[place] 5-325] 1 tab PO Q4HR PRN #30 tab 03/17/21 [Rx] Ibuprofen [Motrin] 600 mg PO Q6HR PRN #30 tab 03/17/21 [Rx] Follow up Appointment(s)/Referral(s): Uriah Shaver DO [Doctor of Osteopathic Medicine] - 1 Week Patient Instructions/Handouts: *Surgery [facility] - Scopalamine Patch Instructions Activity/Diet/Wound Care/Special Instructions: No heavy lifting, limit stairs and driving, and pelvic rest. If any high temperatures, heavy bleeding, or severe pain call my office Discharge Disposition: HOME SELF-CARE
[2021-03-17 10:19] VITALS: TEMP 97
[2021-03-17] MEDS ORDERED: LACTATED RINGERS 1,000 ML IV ONE (10:40)
[2021-03-17 11:37] VITALS: BP 110/76; PULSE 95
== END 2021-03-17 11:54 | disposition home or self-care (01) ==
LOC: OR 07:13
PROVIDERS: ATTEND Obstetrics & Gynecology
DX: T83.428A Displacement of other prosthetic devices, implants and grafts of genital tract, initial encounter (principal); D25.9 Leiomyoma of uterus, unspecified; R10.2 Pelvic and perineal pain; M79.7 Fibromyalgia; M06.9 Rheumatoid arthritis, unspecified; M19.90 Unspecified osteoarthritis, unspecified site; J45.909 Unspecified asthma, uncomplicated; F41.9 Anxiety disorder, unspecified; F32.9 Major depressive disorder, single episode, unspecified; Z20.822 Contact with and (suspected) exposure to COVID-19; Z86.718 Personal history of other venous thrombosis and embolism; Z87.891 Personal history of nicotine dependence; Y76.8 Miscellaneous obstetric and gynecological devices associated with adverse incidents, not elsewhere classified
CPT/HCPCS: 81025; 87635; 58679; J2250; J1100; J2405; J2001; J3010; J0131; J0330; J2704; J1170

== ENCOUNTER 2021-09-27 23:48 | Emergency (ER) | payer OTHER ==
[2021-09-27 23:57] VITALS: TEMP 98.6
[2021-09-28] MEDS ORDERED: ORPHENADRINE 30 MG/ML 2 ML VIAL IVP STA (01:42)
[2021-09-28] MEDS ORDERED: KETOROLAC 15 MG/ML 1 ML VIAL IVP STA (01:42)
--- NOTE | 2021-09-28 01:54 | ED ---
General Adult HPI - General Chief complaint: Upper Respiratory Infection Stated complaint: Fever, cough, body aches Time Seen by Provider: 09/28/21 01:23 Source: patient, RN notes reviewed Mode of arrival: ambulatory Limitations: no limitations - History of Present Illness Initial comments: 30-year-old female presents emergency Department with chief complaint of cough congestion. Patient states her distal positive for COVID-19. Patient states his symptoms. Patient states that she also injured her back lifting her kidney who is in a cast. Patient states she just twisted wrong. Denies any bowel bladder incontinence or retention of 7 changes patient offers no other complaints. - Related Data Home Medications Medication Instructions Recorded Confirmed Acetaminophen [Tylenol Extra 500 mg PO DIRECTED PRN 03/14/21 03/17/21 Strength] Previous Rx's Medication Instructions Recorded HYDROcodone/APAP 5-325MG [[place] 1 tab PO Q4HR PRN #30 tab 03/17/21 5-325] Ibuprofen [Motrin] 600 mg PO Q6HR PRN #30 tab 03/17/21 Ibuprofen [Motrin] 600 mg PO Q8HR PRN #20 tab 09/28/21 Allergies Allergy/AdvReac Type Severity Reaction Status Date / Time No Known Allergies Allergy Verified 09/27/21 23:57 Review of Systems ROS Statement: Those systems with pertinent positive or pertinent negative responses have been documented in the HPI. ROS Other: All systems not noted in ROS Statement are negative. Past Medical History Past Medical History: Asthma, Deep Vein Thrombosis (DVT), Fibromyalgia, Osteoarthritis (OA), Rheumatoid Arthritis (RA) Additional Past Medical History / Comment(s): MIGRAINES, DVT LEFT GROIN (2009), PAST HX ACTIVITY INDUCED ASTHMA ., HERNIATED DISC, BACK PAIN, ARTHRITIS IN BACK & KNEES. , CHILDHOOD R.A., PAINFUL MENSTRUAL PERIODS., ABDOMINAL PAIN. History of Any Multi-Drug Resistant Organisms: None Reported Past Surgical History: Adenoidectomy, Breast Surgery, Orthopedic Surgery, Tonsillectomy, Tubal Ligation Additional Past Surgical History / Comment(s): BREAST Bx, MULTIPLE BILAT KNEE SURGERYS., LEFT SHOULDER SURGERY Past Anesthesia/Blood Transfusion Reactions: Postoperative Nausea & Vomiting (PONV) Past Psychological History: Anxiety, Depression Smoking Status: Former smoker Past Alcohol Use History: Rare Past Drug Use History: None Reported - Past Family History Mother Family Medical History: No Reported History, Hypertension General Exam Limitations: no limitations General appearance: alert, in no apparent distress Head exam: Present: atraumatic, normocephalic, normal inspection Eye exam: Present: normal appearance, PERRL, EOMI. Absent: scleral icterus, conjunctival injection, periorbital swelling ENT exam: Present: normal exam, normal oropharynx, mucous membranes moist Neck exam: Present: normal inspection, full ROM. Absent: tenderness, meningismus, lymphadenopathy Respiratory exam: Present: normal lung sounds bilaterally. Absent: respiratory distress, wheezes, rales, rhonchi, stridor Cardiovascular Exam: Present: regular rate, normal rhythm, normal heart sounds. Absent: systolic murmur, diastolic murmur, rubs, gallop, clicks GI/Abdominal exam: Present: soft, normal bowel sounds. Absent: distended, tenderness, guarding, rebound, rigid Extremities exam: Present: normal inspection, full ROM, normal capillary refill. Absent: tenderness, pedal edema, joint swelling, calf tenderness Back exam: Present: full ROM, tenderness, paraspinal tenderness. Absent: vertebral tenderness Neurological exam: Present: alert, oriented X3, CN II-XII intact Skin exam: Present: warm, dry, intact, normal color. Absent: rash Course Vital Signs 09/27/21 23:54 Temperature 98.6 F Pulse Rate 80 Respiratory 20 Rate Blood Pressure 127/91 O2 Sat by Pulse 97 Oximetry Medical Decision Making - Medical Decision Making Patient did receive monoclonal antibodies over discharged in stable condition. Patient is a lumbar strain. - Lab Data Lab Results 09/27/21 Range/Units 23:57 Coronavirus (PCR) Detected A (Not Detectd) Disposition Clinical Impression: COVID-19, Lumbar strain Disposition: HOME SELF-CARE Condition: Stable Instructions (If sedation given, give patient instructions): Low Back Strain (ED), Coronavirus Disease 2019 (COVID-19) Additional Instructions: Please return to the Emergency Department if symptoms worsen or any other concerns. Prescriptions: Ibuprofen [Motrin] 600 mg PO Q8HR PRN #20 tab PRN Reason: Pain Is patient prescribed a controlled substance at d/c from ED?: No Referrals: Hang Beasley MD [Primary Care Provider] - 1-2 days Time of Disposition: 01:53
[2021-09-28] MEDS ORDERED: SODIUM CHLORIDE 0.9% 50 ML IVPB ONE (02:30)
[2021-09-28] MEDS ORDERED: CASIRIVIMAB/IMDEVIMAB (EUA) 1,200 MG in SODIUM CHLORIDE 0.9% 100 ML IVPB ONE (02:30)
[2021-09-28 04:15] VITALS: BP 135/87; PULSE 65; RESP 18
== END 2021-09-28 04:15 | disposition home or self-care (01) ==
LOC: EC 23:48
DX: U07.1 COVID-19 (principal); S39.012A Strain of muscle, fascia and tendon of lower back, initial encounter; J45.909 Unspecified asthma, uncomplicated; M19.90 Unspecified osteoarthritis, unspecified site; M79.7 Fibromyalgia; F41.9 Anxiety disorder, unspecified; F32.9 Major depressive disorder, single episode, unspecified; Z86.718 Personal history of other venous thrombosis and embolism; Z90.89 Acquired absence of other organs; Z98.51 Tubal ligation status; Z87.891 Personal history of nicotine dependence; X58.XXXA Exposure to other specified factors, initial encounter
CPT/HCPCS: 99283 ×2; 96365; 96375 ×3; 87635; M0243; J2360; J1885; Q0243

== ENCOUNTER 2021-10-06 21:15 | Emergency (ER) | payer OTHER ==
[2021-10-06] MEDS ORDERED: IBUPROFEN 600 MG TAB PO STA (22:58)
[2021-10-06] MEDS ORDERED: ACETAMINOPHEN TAB 500 MG TAB PO STA (22:58)
--- NOTE | 2021-10-06 23:21 | XR ---
EXAMINATION TYPE: XR chest 1V portable DATE OF EXAM: 10/06/2021 COMPARISON: 02/19/2017 HISTORY: Pain TECHNIQUE: Single view FINDINGS: Heart and mediastinum are normal. Lungs are clear. Diaphragm is normal. Bony thorax is inta ct. IMPRESSION: Normal chest. No change.
--- NOTE | 2021-10-06 23:46 | ED ---
General Adult HPI - General Chief complaint: Fever Stated complaint: COVID + Fever body pain Time Seen by Provider: 10/06/21 22:57 Source: patient Mode of arrival: ambulatory Limitations: no limitations - History of Present Illness Initial comments: 30-year-old female with a past medical history of asthma, DVT, fibromyalgia, RA not on immunosuppressants presents to the emergency room for a chief complaint of fever. Patient states she was diagnosed with coronavirus 10 days ago. States that she received antibodies. Patient initially didn't have any fevers. However today started to develop a fever. She did take Motrin prior to arrival but not Tylenol. Patient states she has ear pressure and congestion.Patient has no other complaints at this time including shortness of breath, chest pain, abdominal pain, nausea or vomiting, headache, or visual changes. - Related Data Home Medications Medication Instructions Recorded Confirmed Acetaminophen [Tylenol Extra 500 mg PO DIRECTED PRN 03/14/21 03/17/21 Strength] Previous Rx's Medication Instructions Recorded HYDROcodone/APAP 5-325MG [[place] 1 tab PO Q4HR PRN #30 tab 03/17/21 5-325] Ibuprofen [Motrin] 600 mg PO Q6HR PRN #30 tab 03/17/21 Cyclobenzaprine [Flexeril] 10 mg PO TID PRN #15 tab 09/28/21 Ibuprofen [Motrin] 600 mg PO Q8HR PRN #20 tab 09/28/21 Allergies Allergy/AdvReac Type Severity Reaction Status Date / Time No Known Allergies Allergy Verified 10/06/21 21:44 Review of Systems ROS Statement: Those systems with pertinent positive or pertinent negative responses have been documented in the HPI. ROS Other: All systems not noted in ROS Statement are negative. Past Medical History Past Medical History: Asthma, Deep Vein Thrombosis (DVT), Fibromyalgia, Osteoarthritis (OA), Rheumatoid Arthritis (RA) Additional Past Medical History / Comment(s): MIGRAINES, DVT LEFT GROIN (2009), PAST HX ACTIVITY INDUCED ASTHMA ., HERNIATED DISC, BACK PAIN, ARTHRITIS IN BACK & KNEES. , CHILDHOOD R.A., PAINFUL MENSTRUAL PERIODS., ABDOMINAL PAIN. History of Any Multi-Drug Resistant Organisms: None Reported Past Surgical History: Adenoidectomy, Breast Surgery, Orthopedic Surgery, Tonsillectomy, Tubal Ligation Additional Past Surgical History / Comment(s): BREAST Bx, MULTIPLE BILAT KNEE SURGERYS., LEFT SHOULDER SURGERY Past Anesthesia/Blood Transfusion Reactions: Postoperative Nausea & Vomiting (PONV) Past Psychological History: Anxiety, Depression Smoking Status: Former smoker Past Alcohol Use History: Rare Past Drug Use History: None Reported - Past Family History Mother Family Medical History: No Reported History, Hypertension General Exam Limitations: no limitations General appearance: alert, in no apparent distress Head exam: Present: atraumatic Eye exam: Present: normal appearance, PERRL, EOMI. Absent: scleral icterus, conjunctival injection ENT exam: Present: normal exam, mucous membranes moist Neck exam: Present: normal inspection, full ROM. Absent: tenderness Respiratory exam: Present: normal lung sounds bilaterally. Absent: respiratory distress, wheezes Cardiovascular Exam: Present: regular rate, normal rhythm, normal heart sounds GI/Abdominal exam: Present: soft, normal bowel sounds. Absent: distended, tend erness Course Vital Signs 10/06/21 10/06/21 21:44 23:37 Temperature 99.9 F H Pulse Rate 111 H Respiratory 18 20 Rate Blood Pressure 100/71 O2 Sat by Pulse 98 Oximetry Medical Decision Making - Medical Decision Making Vitals are stable. Patient is well-appearing. Chest x-ray shows no acute process. Patient's fever is likely related to viral syndrome from Covid. She'll continue Motrin and Tylenol outpatient. She will return here for any worsening symptoms. Disposition Clinical Impression: COVID-19 Disposition: HOME SELF-CARE Condition: Good Instructions (If sedation given, give patient instructions): Fever in Adults (ED) Additional Instructions: Continue Motrin and Tylenol for fever. Follow-up with your doctor. Return to the emergency room for any worsening symptoms. Is patient prescribed a controlled substance at d/c from ED?: No Referrals: Hang Beasley MD [Primary Care Provider] - 1-2 days Time of Disposition: 23:46
[2021-10-07 00:44] VITALS: BP 112/77; PULSE 92; RESP 16; TEMP 98.7
== END 2021-10-07 00:43 | disposition home or self-care (01) ==
LOC: EC 21:15
DX: U07.1 COVID-19 (principal); J45.909 Unspecified asthma, uncomplicated; M06.9 Rheumatoid arthritis, unspecified; M79.7 Fibromyalgia; Z79.1 Long term (current) use of non-steroidal anti-inflammatories (NSAID)
CPT/HCPCS: 71045; 99283

== ENCOUNTER → 2021-12-19 | Outpatient (CLI) | payer OTHER | END | disposition home or self-care (01) | LOC: LABPAT 08:48 | PROVIDERS: ATTEND Obstetrics & Gynecology | DX: Z01.812 Encounter for preprocedural laboratory examination (principal) | CPT/HCPCS: 80048; 85025; 86850; 86900; 86901 ==

== ENCOUNTER 2021-12-22 05:58 | Day surgery (SDC) | payer OTHER ==
[2021-12-16 11:49] VITALS: BMI 26.4
[2021-12-19 14:38] LABS: Basophils # (A) 0.05 X 10*3/uL (0.00-0.10); Basophils % (A) 0.6 %; Eosinophils # (A) 0.11 X 10*3/uL (0.04-0.35); Eosinophils % (A) 1.4 %; HCT 40.4 % (37.2-46.3); HGB 13.3 g/dL (12.0-15.0); Lymphocytes # (A) 3.13 X 10*3/uL (0.90-5.00); Lymphocytes % (A) 39.1 %; MCH 32.4 pg (27.0-32.0); MCHC 32.9 g/dL (32.0-37.0); MCV 98.3 fL (80.0-97.0); Mean Platelet Volume 10.2 fL (9.5-12.2); Monocytes # (A) 0.58 X 10*3/uL (0.20-1.00); Monocytes % (A) 7.2 %; Neutrophils # (A) 4.13 X 10*3/uL (1.80-7.70); Neutrophils % (A) 51.6 %; Platelet Count 331 X 10*3/uL (140-440); RBC 4.11 X 10*6/uL (4.10-5.20); RDW 12.7 % (11.5-14.5); WBC 8.01 X 10*3/uL (4.50-10.00)
[2021-12-19 14:49] LABS: African American GFR (CKD) 133.9 (60.0-200.0); BUN/Creat Ratio 22.49 Ratio (12.00-20.00); Blood Urea Nitrogen 15.7 mg/dL (9.0-27.0); Calcium 9.4 mg/dL (8.7-10.3); Carbon Dioxide 22.8 mmol/L (20.0-27.5); Non-African American GFR(CKD) 115.6 (60.0-200.0)
--- NOTE | 2021-12-21 12:54 | P.HPOB ---
History of Present Illness H&P Date: 12/21/21 Chief Complaint: Pelvic pain: Adenomyosis Patient is a 31-year-old female with history of chronic pelvic pain. She presented underwent a diagnostic laparoscopy removal of Filshie clip the did not help her pain. She based on prior surgery I believe has adenomyosis. Nostril anti-inflammatories have not helped her symptoms and she has not tolerated hormones well. She also relates that she is having heavier bleeding over the last couple of months and is making light very challenging from that regard as well. Menses is more painful as well. She is scheduled for robotic-assisted left scopic hysterectomy with bilateral salpingectomy, possible CAL and possible BSO. Risks/benefits/alternatives to this procedure were reviewed with the patient in detail and all questions were answered for her prior to proceeding to the operating room. Risks did include but were not limited to bleeding and infection, damage to bladder or bowel, vascular injuries, nerve injuries, ur eteral damage, potential need for further surgery. All other questions were answered for her prior to proceeding to the operative room. Surgical procedure has been previously explained and all questions were answered. Past Medical History Past Medical History: Asthma, Deep Vein Thrombosis (DVT), Fibromyalgia, Osteoarthritis (OA), Rheumatoid Arthritis (RA) Additional Past Medical History / Comment(s): MIGRAINES, DVT LEFT GROIN (2009), PAST HX EXERCISE INDUCED ASTHMA ., HERNIATED DISC, BACK PAIN, ARTHRITIS IN BACK & KNEES., CHILDHOOD R.A History of Any Multi-Drug Resistant Organisms: None Reported Past Surgical History: Adenoidectomy, Breast Surgery, Orthopedic Surgery, Tonsil lectomy, Tubal Ligation Additional Past Surgical History / Comment(s): BREAST Bx, MULTIPLE BILAT KNEE SURGERIES., LEFT SHOULDER SURGERY, reconstructive right knee surg. x2 Past Anesthesia/Blood Transfusion Reactions: Postoperative Nausea & Vomiting ( PONV) Smoking Status: Former smoker - Past Family History Mother Family Medical History: No Reported History, Hypertension Medications and Allergies Home Medications Medication Instructions Recorded Confirmed Type No Known Home Medications 12/16/21 12/16/21 History Allergies Allergy/AdvReac Type Severity Reaction Status Date / Time No Known Allergies Allergy Verified 12/16/21 11:50 Exam Osteopathic Statement: *. No significant issues noted on an osteopathic structural exam other than those noted in the History and Physical/Consult. - OBG Physical Exam Breast: both: normal (no masses) Abdomen: bowel sounds normal, no diffuse tenderness, no bruit present, no guarding noted, no hepatomegaly, no splenomegaly, no mass Vulva: both: normal Vagina: normal moisture, no discharge Cervix: no lesion, no discharge Uterus: normal size, normal contour Adnexa: both: normal Anus/Rectum: normal perianal skin, no rectal mass, no hemorrhoids, heme negative Results Result Diagrams: 12/19/21 09:38 12/19/21 09:38
[~2021-12-22 05:58] MED LIST changes: +DEXAMETHASONE SOD PHOSPHATE 4 MG/ML 1 ML VIAL IV ONE; +LACTATED RINGERS 1,000 ML IV SCH; +MIDAZOLAM 2 MG/2 ML VIAL IV PRN; +ONDANSETRON 4 MG/2 ML VIAL IVP ONE; -Pre Op ABX Message 1 EACH MISC MISCELLANE ONE; +SCOPOLAMINE 1.5MG/72HR PATCH TRANSDERM ONE
[2021-12-22 06:33] VITALS: RESP 16
[2021-12-22] MEDS ORDERED: LIDOCAINE 1% (10MG/ML) FOR IV START INTRADERMA ONE (06:35)
[2021-12-22] MEDS ORDERED: HYDROmorphone 0.5 MG/0.5 ML SYRINGE IVP PRN (07:00)
[2021-12-22] MEDS ORDERED: fentaNYL (PF) 50 MCG/ML 2 ML AMP ONE (07:20)
[2021-12-22] MEDS ORDERED: LIDOCAINE 1% INJ 10MG/ML (20 ML MDV) ONE (07:20)
[2021-12-22] MEDS ORDERED: GLYCOPYRROLATE 0.2 MG/ML 2 ML VIAL ONE (07:20)
[2021-12-22] MEDS ORDERED: SUCCINYLCHOLINE CHLORIDE 100 MG/5 ML SYR IV ONE (07:20)
[2021-12-22] MEDS ORDERED: ROCURONIUM 10 MG/ML (5 ML VIAL) IV ONE (07:20)
[2021-12-22] MEDS ORDERED: KETOROLAC 15 MG/ML 1 ML VIAL ONE (07:20)
[2021-12-22] MEDS ORDERED: MIDAZOLAM 2 MG/2 ML VIAL ONE (07:20)
[2021-12-22] MEDS ORDERED: PROPOFOL 10 MG/ML 20 ML VIAL IV ONE (07:20)
[2021-12-22] MEDS ORDERED: NEOSTIGMINE 1 MG/ML 10 ML VIAL ONE (07:20)
[2021-12-22] MEDS ORDERED: BUPIVACAINE (PF) 0.25% 30 ML VIAL SQ ONE (08:00)
[2021-12-22] MEDS ORDERED: LACTATED RINGERS 1,000 ML IV ONE ×2 (08:35)
[2021-12-22] MEDS ORDERED: SIMETHICONE 80 MG CHEWABLE PO PRN (09:11)
[2021-12-22] MEDS ORDERED: ONDANSETRON 4 MG/2 ML VIAL IVP PRN (09:11)
[2021-12-22] MEDS ORDERED: HYDROcodone/APAP 5-325MG 1 EACH TAB PO PRN (09:13)
--- NOTE | 2021-12-22 09:30 | P.OP ---
Date of Procedure: 12/22/21 Preoperative Diagnosis: Pelvic pain: Failed NovaSure Postoperative Diagnosis: Same Procedure(s) Performed: Robotic-assisted laparoscopic hysterectomy with bilateral salpingectomy Anesthesia: KARLI Surgeon: Uriah Shaver Hot Iron Worker #1: Christina Dodge Estimated Blood Loss (ml): 25 IV fluids (ml): 700 Urine output (ml): 25 Pathology: other (Uterus, cervix and fallopian tubes) Condition: stable Disposition: floor Operative Findings: Pathology pending Description of Procedure: Patient was taken to the operating suite where a general anesthetic was found be adequate. She was prepped and draped in normal sterile fashion and placed in the dorsal lithotomy position. Initially a weighted speculum inserted in vagina and the anterior lip of the cervix identified grasped with a sound 2 tenaculum and dilated. He was then sounded to 6 cm and a 6 cm marta and 3.5 cm cup were used on the Ana Rosa manipulator. Sutures were placed at 3 and 9 to assist in removal of the uterus. Once this was placed on full catheter was placed all other incidents were removed from vagina. Gloves were then changed and attention was turned to abdominal portion procedure where 2 mL a course of Marcaine was injected 2 cm superior to the umbilicus. Through this injected anesthetic a 5 mm skin incision was made and through this incision, under direct visualization. Trocar and sleeve the camera was inserted. Once perineal placement was assured gas was left fully slick abdomen and patient's placement steep Trendelenburg position. Once this was accomplished 2 lateral ports were placed 10 cm lateral to the umbilicus on the right and left side under direct visualization. Fourth port and sleeve was inserted through once the main incision between the left lateral and medial ports and the camera for was exchanged for robotic port. Robot was then brought in and docked once fully docked a scissor and [place] grasper placed at this point I broke scrub and went to the console. Uterus was then elevated and tipped to the right side left fallopian tube was then removed using cautery and scissors once this was accomplished utero-ovarian ligament was identified cauterized and transected and the is a laparoscopic tissue to the round ligament was cauterized transected. Round ligament was then cauterized and transected and anterior posterior leafs the broad ligament were developed. Vascular long lateral border the left side of the uterus was then cauterized and cut to the bladder flap bladder flap was then elevated incised with Metzenbaums and carried across face the uterus while undermining with a [place] and incised with a scissor. Bladder was then bluntly dissected out of the operative field. Once this was accomplished in a similar fashion the right side of the uterus was developed. Once completed bladder was verified completely out of the operative field and an anterior colpotomy was made. The balloon had previously been blown up in the Ana Rosa manipulator. Following the cup in a Clockwise Fashion 3 and 60 Was Done Cheating Head When Necessary to Maintain Excellent Hemostasis Once the Cup Was Fully Completed and the Cervix and Vagina Were the Uterus Was Brought into the Vagina to Maintain Pneumoperitoneum. Once Excellent Hemostasis Was Webb to Be Obtained Incidents Were Exchanged for a Anuel grasper and a make suture cut and the vaginal cuff was closed with 20V lock suture in a running fashion. Pelvis that suction irrigated no bleeding is noted across the pedicles excellent hemostasis noted therefore all incidents removed and gas was allowed to expel from the abdomen. 5 deep breaths were provided during this process. At this point Dr. Dodge close incision subcuticularly and I did a diagnostic cystoscopy with excellent flow noted from both ureteral jets. All incidents were then removed. Sponge, lap, needle counts were all correct 2. Patient was then taken to the recovery room in stable and satisfactory condition.
[2021-12-22] MEDS: HYDROcodone/APAP 5-325MG 1 EACH TAB PO PRN ×2 (10:35→20:58)
[2021-12-22] MEDS: KETOROLAC 30 MG/ML 1 ML VIAL IVP SCH (17:50)
[2021-12-22] MEDS: SENNOSIDES-DOCUSATE SODIUM 1 EACH TAB PO SCH (20:57)
[2021-12-22 21:04] VITALS: TEMP 98.2
[2021-12-23] MEDS: KETOROLAC 30 MG/ML 1 ML VIAL IVP SCH (03:34)
[2021-12-23 03:40] VITALS: BP 100/63; PULSE 63
[2021-12-23] MEDS: SENNOSIDES-DOCUSATE SODIUM 1 EACH TAB PO SCH (07:26)
--- NOTE | 2021-12-23 08:35 | P.DS ---
Providers Expected date of discharge: 12/23/21 Attending physician: Uriah Shaver Primary care physician: Hang Gudino [facility] Course: Patient is doing very well this morning post op day 1. She is ambulating, voiding and she is tolerating her diet. She has passed some flatus. She is requesting discharge home today. Vital signs are stable and she is afebrile. Heart regular, lungs clear, extremities without pain. Abdomen soft and bowel sounds are noted. She will follow up with me in 1 week. Discharge instructions otherwise her thoroughly reviewed for the patient and she is especially aware to have complete pelvic rest for at least 6-8 weeks postoperatively. All other questions are answered for her at this time and prescriptions for Motrin and [place] are forwarded to the pharmacy. Patient Condition at Discharge: Good Plan - Discharge Summary Discharge Rx Participant: Yes New Discharge Prescriptions: New HYDROcodone/APAP 5-325MG [[place] 5-325] 1 tab PO Q4HR PRN #30 tab PRN Reason: Pain Ibuprofen [Motrin] 600 mg PO Q6HR PRN #30 tab PRN Reason: Pain Discharge Medication List HYDROcodone/APAP 5-325MG [[place] 5-325] 1 tab PO Q4HR PRN #30 tab 12/23/21 [Rx] Ibuprofen [Motrin] 600 mg PO Q6HR PRN #30 tab 12/23/21 [Rx] Follow up Appointment(s)/Referral(s): Uirah Shaver DO [Doctor of Osteopathic Medicine] - 1 Week Activity/Diet/Wound Care/Special Instructions: No heavy lifting, limit stairs and driving, and pelvic rest. If any high temperatures, heavy bleeding, or severe pain call my office Discharge Disposition: HOME SELF-CARE
== END 2021-12-23 09:15 | disposition home or self-care (01) ==
LOC: OR 05:58 → 4FBP 08:57 → OR 12-23 09:15
PROVIDERS: ATTEND Obstetrics & Gynecology
DX: N80.0 Endometriosis of uterus (principal); N72 Inflammatory disease of cervix uteri; N85.8 Other specified noninflammatory disorders of uterus; D25.9 Leiomyoma of uterus, unspecified; M79.7 Fibromyalgia; Z20.822 Contact with and (suspected) exposure to COVID-19; M19.90 Unspecified osteoarthritis, unspecified site; M06.9 Rheumatoid arthritis, unspecified; Z86.718 Personal history of other venous thrombosis and embolism; Z87.09 Personal history of other diseases of the respiratory system; Z98.51 Tubal ligation status; Z98.890 Other specified postprocedural states; Z87.891 Personal history of nicotine dependence
CPT/HCPCS: 81025; 86900; 86901; 80048; 85025; 86850; 88307; 87635; 58571; J2250; J1100; J2710; J0690; J2405; J2001; J3010; J1885 ×3; J0330; J2704; J1170

== ENCOUNTER → 2021-12-30 | Outpatient (CLI) | payer OTHER ==
[2021-12-30 16:09] LABS: HGB 13.9 gm/dL (11.4-16.0); MCH 33.3 pg (25.0-35.0); MCHC 33.9 g/dL (31.0-37.0); MCV 98.4 fL (80.0-100.0); Mean Platelet Volume 7.4; Platelet Count 252 k/uL (150-450); RBC 4.17 m/uL (3.80-5.40); RDW 12.4 % (11.5-15.5)
[2021-12-30 16:12] LABS: Appearance,Urine Cloudy (Clear); Bilirubin,Urine Negative (Negative); Blood,Urine Moderate (Negative); Budding Yeast,Urine Few /hpf; Color,Urine Yellow; Glucose,Urine (UA) Negative (Negative); Hyaline Casts,Urine 2 /lpf (0-2); Ketones,Urine 1+ (Negative); Leukocyte Esterase,Urine Large (Negative); Mucus,Urine Many /hpf; Nitrite,Urine Negative (Negative); PH, Urine 5.5 (5.0-8.0); Protein,Urine 1+ (Negative); RBC,Urine 12 /hpf (0-5); Specific Gravity,Urine 1.028 (1.001-1.035); Squamous Epithelial Cell,Urine 29 /hpf (0-4); WBC,Urine 68 /hpf (0-5)
== END | disposition home or self-care (01) ==
LOC: LABWHC1 14:40
PROVIDERS: ATTEND Obstetrics & Gynecology
DX: O86.4 Pyrexia of unknown origin following delivery (principal)
CPT/HCPCS: 36415; 81001; 85027; 87086

== ENCOUNTER 2023-02-15 09:47 | Emergency (ER) | payer OTHER ==
[2023-02-15 09:50] VITALS: TEMP 99.3
--- NOTE | 2023-02-15 10:35 | ED ---
URI HPI - General Chief Complaint: Upper Respiratory Infection Stated Complaint: Headache,Sore Throat Time Seen by Provider: 02/15/23 09:50 Source: patient, RN notes reviewed Mode of arrival: ambulatory Limitations: no limitations - History of Present Illness Initial Comments: 32-year-old female presents emergency Department chief complaint of fever, sore throat, headache and body aches. Patient states symptoms started last day. Patient has a mild cough since morning. Denies any sick contacts denies any significant past medical history denies nausea vomiting diarrhea constipation denies any neck pain, neck stiffness. - Related Data Previous Rx's Medication Instructions Recorded HYDROcodone/APAP 5-325MG [[place] 1 tab PO Q4HR PRN #30 tab 12/23/21 5-325] Ibuprofen [Motrin] 600 mg PO Q6HR PRN #30 tab 12/23/21 Allergies Allergy/AdvReac Type Severity Reaction Status Date / Time No Known Allergies Allergy Verified 02/15/23 09:50 Review of Systems ROS Statement: Those systems with pertinent positive or pertinent negative responses have been documented in the HPI. ROS Other: All systems not noted in ROS Statement are negative. Past Medical History Past Medical History: Asthma, Deep Vein Thrombosis (DVT), Fibromyalgia, Osteoarthritis (OA), Rheumatoid Arthritis (RA) Additional Past Medical History / Comment(s): MIGRAINES, DVT LEFT GROIN (2009), PAST HX EXERCISE INDUCED ASTHMA ., HERNIATED DISC, BACK PAIN, ARTHRITIS IN BACK & KNEES., CHILDHOOD R.A History of Any Multi-Drug Resistant Organisms: None Reported Past Surgical History: Adenoidectomy, Breast Surgery, Orthopedic Surgery, Tonsillectomy, Tubal Ligation Additional Past Surgical History / Comment(s): BREAST Bx, MULTIPLE BILAT KNEE SURGERIES., LEFT SHOULDER SURGERY, reconstructive right knee surg. x2 Past Anesthesia/Blood Transfusion Reactions: Postoperative Nausea & Vomiting (PONV) Past Psychological History: Anxiety, Depression Smoking Status: Former smoker Past Alcohol Use History: Rare Past Drug Use History: None Reported - Past Family History Mother Family Medical History: No Reported History, Hypertension General Exam Limitations: no limitations General appearance: alert, in no apparent distress Head exam: Present: atraumatic, normocephalic, normal inspection Eye exam: Present: normal appearance, PERRL, EOMI. Absent: scleral icterus, conjunctival injection, periorbital swelling ENT exam: Present: mucous membranes moist, TM's normal bilaterally. Absent: normal oropharynx (Erythematous posterior pharynx) Neck exam: Present: normal inspection, full ROM. Absent: tenderness, meningismus, lymphadenopathy Respiratory exam: Present: normal lung sounds bilaterally. Absent: respiratory distress, wheezes, rales, rhonchi, stridor Cardiovascular Exam: Present: regular rate, normal rhythm, normal heart sounds. Absent: systolic murmur, diastolic murmur, rubs, gallop, clicks Course Vital Signs 02/15/23 02/15/23 09:47 11:18 Temperature 99.3 F Pulse Rate 86 91 Respiratory 18 16 Rate Blood Pressure 133/71 102/70 O2 Sat by Pulse 95 96 Oximetry Medical Decision Making - Medical Decision Making Was pt. sent in by a medical professional or institution ([facility], [facility], urgent care, hospital, or halfway...) When possible be specific @ -No Did you speak to anyone other than the patient for history (EMS, parent, family, police, friend...)? What history was obtained from this source @ -No Did you review nursing and triage notes (agree or disagree)? Why? @ -I reviewed and agree with nursing and triage notes Were old charts reviewed (outside hosp., previous admission, EMS record, old EKG, old radiological studies, urgent care reports/EKG's, halfway records)? Report findings @ -No old charts were reviewed Differential Diagnosis (chest pain, altered mental status, abdominal pain women, abdominal pain men, vaginal bleeding, weakness, fever, dyspnea, syncope, headache, dizziness, GI bleed, back pain, seizure, CVA, palpatations, mental health, musculoskeletal)? @ -Influenza, covid, strep, RSV, URI, this is a long list of EKG interpreted by me (3pts min.). @ -None X-rays interpreted by me (1pt min.). @ -None done CT interpreted by me (1pt min.). @ -None done U/S interpreted by me (1pt. min.). @ -None done What testing was considered but not performed or refused? (CT, X-rays, U/S, labs)? Why? @ -None What meds were considered but not given or refused? Why? @ -None Did you discuss the management of the patient with other professionals (professionals i.e. , PA, [facility], lab, RT, psych nurse, manager social media, manager intensive care, teacher, chief contract officer, case monitor)? Give summary @ -No Was smoking cessation discussed for >3mins.? @ -No Was critical care preformed (if so, how long)? @ -No Were there social determinants of health that impacted care today? How? (Homelessness, low income, unemployed, alcoholism, drug addiction, transportation, low edu. Level, literacy, decrease access to med. care, detention, rehab)? @ -No Was there de-escalation of care discussed even if they declined (Discuss DNR or withdrawal of care, Hospice)? DNR status @ -No What co-morbidities impacted this encounter? (DM, HTN, Smoking, COPD, CAD, Can cer, CVA, ARF, Chemo, Hep., AIDS, mental health diagnosis, sleep apnea, morbid obesity)? @ -None Was patient admitted / discharged? Hospital course, mention meds given and route, prescriptions, significant lab abnormalities, going to OR and other pertinent info. @ -Discharge patient has a viral upper extremity infection patient's vitals are stable patient is in distress. Supportive treatment discussed, return parameters discussed. Undiagnosed new problem with uncertain prognosis? @ -No Drug Therapy requiring intensive monitoring for toxicity (Heparin, Nitro, Insulin, Cardizem)? @ -No Were any procedures done? @ -No Diagnosis/symptom? @ -URI Acute, or Chronic, or Acute on Chronic? @ -Acute Uncomplicated (without systemic symptoms) or Complicated (systemic symptoms)? @ -Uncomplicated Side effects of treatment? @ -No Exacerbation, Progression, or Severe Exacerbation? @ -No Poses a threat to life or bodily function? How? (Chest pain, USA, AR, pneumonia, PE, COPD, DKA, ARF, appy, cholecystitis, CVA, Diverticulitis, Homicidal, Suicidal, threat to staff... and all critical care pts) @ -No - Lab Data Lab Results 02/15/23 02/15/23 Range/Units 10:00 10:00 Influenza Type A (PCR) Not Detected (Not Detectd) Influenza Type B (PCR) Not Detected (Not Detectd) RSV (PCR) Not Detected (Not Detectd) SARS-CoV-2 (PCR) Not Detected (Not Detectd) Group A Strep (PCR) NOT DETECTED (Not Detectd) Disposition Clinical Impression: URI (upper respiratory infection) Disposition: HOME SELF-CARE Condition: Stable Instructions (If sedation given, give patient instructions): Upper Respiratory Infection (ED) Additional Instructions: Please return to the Emergency Department if symptoms worsen or any other concerns. Is patient prescribed a controlled substance at d/c from ED?: No Referrals: Hang Beasley MD [Primary Care Provider] - 1-2 days Time of Disposition: 11:11
[2023-02-15 11:19] VITALS: BP 102/70; PULSE 91; RESP 16
== END 2023-02-15 11:19 | disposition home or self-care (01) ==
LOC: EC 09:47
DX: J06.9 Acute upper respiratory infection, unspecified (principal); Z20.822 Contact with and (suspected) exposure to COVID-19
CPT/HCPCS: 87636; 87651; 99284

== ENCOUNTER 2023-06-07 21:55 | Emergency (ER) | payer OTHER ==
[2023-06-07 22:09] VITALS: TEMP 98
[2023-06-08] MEDS ORDERED: methylPREDNISolone SOD SUCCI 125 MG/2 ML VIAL IM ONE (00:11)
--- NOTE | 2023-06-08 00:16 | ED ---
Allergic Reaction HPI - General Chief complaint: Allergic Reaction Stated complaint: Bee Sting Right Hand Time Seen by Provider: 06/07/23 23:39 Source: patient Mode of arrival: ambulatory Limitations: no limitations - History of Present Illness Initial Comments: 32-year-old female with past medical history significant for ALLERGIES to bee stings presents to ED with a chief complaint ALLERGIC reaction. Patient states earlier in the day was stung by a bee and developed swelling of her right hand. Denies rash. Denies facial swelling. Denies shortness of breath. States took 2 50 mg Benadryl prior to arrival. At present only notes swelling of the right hand. No other complaints. - Related Data Previous Rx's Medication Instructions Recorded HYDROcodone/APAP 5-325MG [[place] 1 tab PO Q4HR PRN #30 tab 12/23/21 5-325] Ibuprofen [Motrin] 600 mg PO Q6HR PRN #30 tab 12/23/21 EPINEPHrine (Auto Inject) [Epipen] 0.3 mg IM ONCE PRN 1 Days #1 each 06/08/23 methylPREDNISolone Dose Pack 4 mg PO DIRECTED #21 tab 06/08/23 [Medrol Dose Pack] Allergies Allergy/AdvReac Type Severity Reaction Status Date / Time bee venom protein (honey bee) Allergy Swelling Verified 06/07/23 22:00 Review of Systems ROS Statement: Those systems with pertinent positive or pertinent negative responses have been documented in the HPI. ROS Other: All systems not noted in ROS Statement are negative. Past Medical History Past Medical History: Asthma, Deep Vein Thrombosis (DVT), Fibromyalgia, Osteoarthritis (OA), Rheumatoid Arthritis (RA) Additional Past Medical History / Comment(s): MIGRAINES, DVT LEFT GROIN (2009), PAST HX EXERCISE INDUCED ASTHMA ., HERNIATED DISC, BACK PAIN, ARTHRITIS IN BACK & KNEES., CHILDHOOD R.A History of Any Multi-Drug Resistant Organisms: None Reported Past Surgical History: Adenoidectomy, Breast Surgery, Orthopedic Surgery, Tonsillectomy, Tubal Ligation Additional Past Surgical History / Comment(s): BREAST Bx, MULTIPLE BILAT KNEE SURGERIES., LEFT SHOULDER SURGERY, reconstructive right knee surg. x2 Past Anesthesia/Blood Transfusion Reactions: Postoperative Nausea & Vomiting (PONV) Past Psychological History: Anxiety, Depression Smoking Status: Former smoker Past Alcohol Use History: Rare Past Drug Use History: None Reported - Past Family History Mother Family Medical History: No Reported History, Hypertension General Exam Limitations: no limitations General appearance: alert, in no apparent distress Eye exam: Present: normal appearance ENT exam: Present: normal exam, other (No facial swelling. No swelling of the oropharynx.) Respiratory exam: Present: normal lung sounds bilaterally Cardiovascular Exam: Present: regular rate, normal rhythm GI/Abdominal exam: Present: soft Extremities exam: Present: other (Minimal swelling of the right hand. Stinger not in place. Strength and sensation intact in bilateral upper extremities.) Neurological exam: Present: alert, oriented X3 Skin exam: Present: warm, dry Course Vital Signs 06/07/23 22:01 Temperature 98.0 F Pulse Rate 90 Respiratory 16 Rate Blood Pressure 119/85 O2 Sat by Pulse 100 Oximetry Medical Decision Making - Medical Decision Making Was pt. sent in by a medical professional or institution (, PA, LIGHT BULB ASSEMBLER, urgent care, hospital, or [facility]...) When possible be specific @ -No Did you speak to anyone other than the patient for history (EMS, parent, family, police, friend...)? What history was obtained from this source @ -No Did you review nursing and triage notes (agree or disagree)? Why? @ -I reviewed and agree with nursing and triage notes Were old charts reviewed (outside hosp., previous admission, EMS record, old EKG, old radiological studies, urgent care reports/EKG's, [facility] records)? Report findings @ -No old charts were reviewed Differential Diagnosis (chest pain, altered mental status, abdominal pain women, abdominal pain men, vaginal bleeding, weakness, fever, dyspnea, syncope, headache, dizziness, GI bleed, back pain, seizure, CVA, palpatations, mental health, musculoskeletal)? @ -Anaphylaxis, local ALLERGIC reaction. This is not meant to be an all- inclusive list. EKG interpreted by me (3pts min.). @ -None X-rays interpreted by me (1pt min.). @ -None done CT interpreted by me (1pt min.). @ -None done U/S interpreted by me (1pt. min.). @ -None done What testing was considered but not performed or refused? (CT, X-rays, U/S, labs)? Why? @ -None What meds were considered but not given or refused? Why? @ -None Did you discuss the management of the patient with other professionals (professionals i.e. , PA, LIGHT BULB ASSEMBLER, lab, RT, psych nurse, social group worker, product controller, teacher, emergency communications officer, family service caseworker)? Give summary @ -No Was smoking cessation discussed for >3mins.? @ -No Was critical care preformed (if so, how long)? @ -No Were there social determinants of health that impacted care today? How? (Homelessness, low income, unemployed, alcoholism, drug addiction, transportation, low edu. Level, literacy, decrease access to med. care, alf, rehab)? @ -No Was there de-escalation of care discussed even if they declined (Discuss DNR or withdrawal of care, Hospice)? DNR status @ -No What co-morbidities impacted this encounter? (DM, HTN, Smoking, COPD, CAD, Cancer, CVA, ARF, Chemo, Hep., AIDS, mental health diagnosis, sleep apnea, mo rbid obesity)? @ -None Was patient admitted / discharged? Hospital course, mention meds given and route, prescriptions, significant lab abnormalities, going to OR and other pertinent info. @ -Discharge. Patient provided Solu-Medrol here in the ED and provided prescription for Medrol Dosepak. Also provided prescription for EpiPen. Discussed signs and symptoms of anaphylaxis and proper use of EpiPen. At evaluation and discharge no evidence of anaphylaxis. Discharged in stable condition. Discussed return precautions with patient who verbalizes agreement. Undiagnosed new problem with uncertain prognosis? @ -No Drug Therapy requiring intensive monitoring for toxicity (Heparin, Nitro, Insulin, Cardizem)? @ -No Were any procedures done? @ -No Diagnosis/symptom? @ -ALLERGIC reaction Acute, or Chronic, or Acute on Chronic? @ -Acute Uncomplicated (without systemic symptoms) or Complicated (systemic symptoms)? @ -Uncomplicated Side effects of treatment? @ -No Exacerbation, Progression, or Severe Exacerbation? @ -No Poses a threat to life or bodily function? How? (Chest pain, [place], [place], pneumonia, PE, COPD, DKA, ARF, appy, cholecystitis, CVA, Diverticulitis, Homicidal, Suicidal, threat to staff... and all critical care pts) @ -No Disposition Clinical Impression: Allergic reaction Disposition: HOME SELF-CARE Condition: Good Instructions (If sedation given, give patient instructions): Anaphylaxis (ED), General Allergic Reaction (ED) Prescriptions: EPINEPHrine (Auto Inject) [Epipen] 0.3 mg IM ONCE PRN 1 Days #1 each PRN Reason: Anaphylaxis methylPREDNISolone Dose Pack [Medrol Dose Pack] 4 mg PO DIRECTED #21 tab Is patient prescribed a controlled substance at d/c from ED?: No Referrals: Hang Beasley MD [Primary Care Provider] - 1-2 days Time of Disposition: 00:20
[2023-06-08 00:50] VITALS: BP 116/76; PULSE 82; RESP 18
== END 2023-06-08 00:50 | disposition home or self-care (01) ==
LOC: EC 21:55
DX: T78.40XA Allergy, unspecified, initial encounter (principal); Z91.030 Bee allergy status; J45.909 Unspecified asthma, uncomplicated; Z86.59 Personal history of other mental and behavioral disorders; Z87.891 Personal history of nicotine dependence
CPT/HCPCS: 99282; 96372; J2930

== ENCOUNTER 2023-09-05 11:59 | Emergency (ER) | payer OTHER ==
[2023-09-05] MEDS ORDERED: IPRATROPIUM-ALBUTEROL 3 ML NEB INHALATION STA (13:54)
--- NOTE | 2023-09-05 14:37 | XR ---
EXAMINATION TYPE: XR chest 2V DATE OF EXAM: 09/05/2023 COMPARISON: 10/06/2021 HISTORY: 32-year-old female with difficulty breathing and cough TECHNIQUE: PA and lateral views FINDINGS: The cardiomediastinal silhouette, aorta, and pulmonary vasculature are within normal limits. Lungs an d pleural spaces are clear. IMPRESSION: No acute cardiopulmonary process.
--- NOTE | 2023-09-05 15:15 | ED ---
General Adult HPI - General Chief complaint: Upper Respiratory Infection Stated complaint: cough Time Seen by Provider: 09/05/23 12:55 Source: patient, RN notes reviewed Mode of arrival: ambulatory Limitations: no limitations - History of Present Illness Initial comments: 32-year-old female with no significant past medical history presents the emergency department with a chief complaint of upper respiratory symptoms. She reports cough, headache, congestion for the last week. She denies any recent sick contacts. She is up-to-date on vaccines. She denies any fever shortness of breath, chest pain, nausea, vomiting with this. - Related Data Previous Rx's Medication Instructions Recorded EPINEPHrine (Auto Inject) [Epipen] 0.3 mg IM ONCE PRN 1 Days #1 each 06/08/23 Azithromycin [Zithromax Z Pack] 1 tab PO DIRECTED #6 tab 09/05/23 Benzonatate [Tessalon Perles] 100 mg PO TID PRN #21 capsule 09/05/23 predniSONE 50 mg PO DAILY #5 tablet 09/05/23 Allergies Allergy/AdvReac Type Severity Reaction Status Date / Time bee venom protein (honey bee) Allergy Swelling Verified 09/05/23 15:20 Review of Systems ROS Statement: Those systems with pertinent positive or pertinent negative responses have been documented in the HPI. ROS Other: All systems not noted in ROS Statement are negative. Past Medical History Past Medical History: Asthma, Deep Vein Thrombosis (DVT), Fibromyalgia, Osteoarthritis (OA), Rheumatoid Arthritis (RA) Additional Past Medical History / Comment(s): MIGRAINES, DVT LEFT GROIN (2009), PAST HX EXERCISE INDUCED ASTHMA ., HERNIATED DISC, BACK PAIN, ARTHRITIS IN BACK & KNEES., CHILDHOOD R.A History of Any Multi-Drug Resistant Organisms: None Reported Past Surgical History: Adenoidectomy, Breast Surgery, Orthopedic Surgery, Tonsillectomy, Tubal Ligation Additional Past Surgical History / Comment(s): BREAST Bx, MULTIPLE BILAT KNEE SURGERIES., LEFT SHOULDER SURGERY, reconstructive right knee surg. x2 Past Anesthesia/Blood Transfusion Reactions: Postoperative Nausea & Vomiting (PONV) Past Psychological History: Anxiety, Depression Smoking Status: Former smoker Past Alcohol Use History: Rare Past Drug Use History: None Reported - Past Family History Mother Family Medical History: No Reported History, Hypertension General Exam - General Exam Comments Initial Comments: General: Alert, in no acute distress Head: atraumatic normocephalic. Eyes PERRL, EOMI intact, mucous membranes moist Respiratory: Expiratory wheezes in bilateral upper lung hand. Cardiovascular: Heart rate regular rate and rhythm Abdominal: Soft without guarding or rebound Extremities: Normal inspection with full range of motion and normal capillary refill Neuroogic: alert and oriented 3, CN II-XII intact, able to ambulate with steady gait Skin: warm dry and intact with normal color Limitations: no limitations Course Vital Signs 09/05/23 09/05/23 09/05/23 12:45 14:43 14:52 Temperature 98 F Pulse Rate 84 78 82 Respiratory 18 Rate Blood Pressure 115/75 O2 Sat by Pulse 97 Oximetry 09/05/23 15:35 Temperature 98.0 F Pulse Rate 84 Respiratory 16 Rate Blood Pressure 110/75 O2 Sat by Pulse 97 Oximetry - Reevaluation(s) Reevaluation #1: 09/05/23 15:14 Should reevaluated. Lungs sounds clear post breathing treatment. Medical Decision Making - Medical Decision Making Was pt. sent in by a medical professional or institution (, PA, OFFICE PROFESSIONALS, urgent care, hospital, or prison...) When possible be specific @ -[No] Did you speak to anyone other than the patient for history (EMS, parent, family, police, friend...)? What history was obtained from this source @ -[No] Did you review nursing and triage notes (agree or disagree)? Why? @ -[I reviewed and agree with nursing and triage notes] Were old charts reviewed (outside hosp., previous admission, EMS record, old EKG, old radiological studies, urgent care reports/EKG's, prison records)? Report findings @ -[No old charts were reviewed] Differential Diagnosis (chest pain, altered mental status, abdominal pain women, abdominal pain men, vaginal bleeding, weakness, fever, dyspnea, syncope, headache, dizziness, GI bleed, back pain, seizure, CVA, palpatations, mental health, musculoskeletal)? @ -[not applicable] EKG interpreted by me (3pts min.). @ -[As above] X-rays interpreted by me (1pt min.). @ -Chest x-ray does not reveal any pleural process CT interpreted by me (1pt min.). @ -[None done] U/S interpreted by me (1pt. min.). @ -[None done] What testing was considered but not performed or refused? (CT, X-rays, U/S, labs)? Why? @ -[None] What meds were considered but not given or refused? Why? @ -[None] Did you discuss the management of the patient with other professionals (professionals i.e. , PA, OFFICE PROFESSIONALS, lab, RT, psych nurse, administrator social welfare, rn anesthesiology, teacher, security control room officer, case liner)? Give summary @ -[No] Was smoking cessation discussed for >3mins.? @ -[No] Was critical care preformed (if so, how long)? @ -[No] Were there social determinants of health that impacted care today? How? (Homelessness, low income, unemployed, alcoholism, drug addiction, transportation, low edu. Level, literacy, decrease access to med. care, halfway, rehab)? @ -[No] Was there de-escalation of care discussed even if they declined (Discuss DNR or withdrawal of care, Hospice)? DNR status @ -[No] What co-morbidities impacted this encounter? (DM, HTN, Smoking, COPD, CAD, Cancer, CVA, ARF, Chemo, Hep., AIDS, mental health diagnosis, sleep apnea, morbid obesity)? @ -[None] Was patient admitted / discharged? Hospital course, mention meds given and route, prescriptions, significant lab abnormalities, going to OR and other pertinent info. @ -Discharged. This is a pleasant 32-year-old female presents emergency department with upper respiratory symptoms. Patient had a thorough history and physical exam performed on the ED via initial physical exam reveals mild expiratory wheeze in the upper lung hand. Patient provided DuoNeb treatment was symptomatically improvement. Patient had vital testing and chest x-ray which was negative. She was provided Z-Yusuf and steroids. I discussed the results in detail with the patient verbalized understanding and all questions were addressed. She is agreeable with the plan for discharge home. Return precautions discussed. Case discussed KAREL Srivastava who agrees with plan of care Undiagnosed new problem with uncertain prognosis? @ -[No] Drug Therapy requiring intensive monitoring for toxicity (Heparin, Nitro, Insulin, Cardizem)? @ -[No] Were any procedures done? @ -[No] Diagnosis/symptom? @ -COugh Acute, or Chronic, or Acute on Chronic? @ -Acute Uncomplicated (without systemic symptoms) or Complicated (systemic symptoms)? @ -uncomplicated Side effects of treatment? @ -[No] Exacerbation, Progression, or Severe Exacerbation? @ -[No] Poses a threat to life or bodily function? How? (Chest pain, [place], [place], pneumonia, PE, COPD, DKA, ARF, appy, cholecystitis, CVA, Diverticulitis, Homicidal, Suicidal, threat to staff... and all critical care pts) @ -Low likelihood - Lab Data Lab Results 09/05/23 Range/Units 13:41 Influenza Type A (PCR) Not Detected (Not Detectd) Influenza Type B (PCR) Not Detected (Not Detectd) RSV (PCR) Not Detected (Not Detectd) SARS-CoV-2 (PCR) Not Detected (Not Detectd) Disposition Clinical Impression: Cough Disposition: HOME SELF-CARE Condition: Stable Instructions (If sedation given, give patient instructions): Upper Respiratory Infection (ED) Prescriptions: predniSONE 50 mg PO DAILY #5 tablet Benzonatate [Tessalon Perles] 100 mg PO TID PRN #21 capsule PRN Reason: Cough Azithromycin [Zithromax Z Pack] 1 tab PO DIRECTED #6 tab Is patient prescribed a controlled substance at d/c from ED?: No Referrals: Hang Beasley [Primary Care Provider] - 1-2 days Time of Disposition: 16:33
[2023-09-05 15:46] VITALS: BP 110/75; PULSE 84; RESP 16; TEMP 98
== END 2023-09-05 19:07 | disposition home or self-care (01) ==
LOC: EC 11:59
DX: J45.909 Unspecified asthma, uncomplicated (principal); Z86.59 Personal history of other mental and behavioral disorders; Z87.891 Personal history of nicotine dependence; Z20.822 Contact with and (suspected) exposure to COVID-19; Z91.030 Bee allergy status
CPT/HCPCS: 71046; 87636; 94640; 99284

== ENCOUNTER 2023-11-12 11:40 | Emergency (ER) | payer OTHER ==
[2023-11-12 12:42] VITALS: RESP 18
[2023-11-12] MEDS ORDERED: SODIUM CHLORIDE 0.9% 1,000 ML IV STA (13:39)
[2023-11-12] MEDS ORDERED: diphenhydrAMINE 50 MG/ML 1 ML VIAL IVP STA (13:39)
[2023-11-12] MEDS ORDERED: KETOROLAC 15 MG/ML 1 ML VIAL IVP STA (13:39)
[2023-11-12] MEDS ORDERED: METOCLOPRAMIDE 5 MG/ML 2 ML VIAL IVP STA (13:39)
[2023-11-12] MEDS ORDERED: DEXAMETHASONE SOD PHOSPHATE 10 MG/ML 1 ML VIAL IVP STA (13:39)
--- NOTE | 2023-11-12 14:12 | ED ---
Headache HPI - General Chief Complaint: Headache Stated Complaint: migraine Time Seen by Provider: 11/12/23 13:30 Source: patient, RN notes reviewed Mode of arrival: ambulatory Limitations: no limitations - History of Present Illness Initial Comments: This is a 33-year-old female who presents to the emergency department for a migraine. States that this has been present over the last 3 days. Reports a history of migraines, but hasn't had one in a long time. This does however feel like a typical migraine for her. She does not currently take any preventative or abortive medication. She's been taking [id number] Tylenol with no relief. Reports associated photophobia and nausea. She would not describe this as the worst headache of her life. MD Complaint: headache, "migraine" Onset/Timin -: days(s) - Related Data Previous Rx's Medication Instructions Recorded EPINEPHrine (Auto Inject) [Epipen] 0.3 mg IM ONCE PRN 1 Days #1 each 06/08/23 Azithromycin [Zithromax Z Pack] 1 tab PO DIRECTED #6 tab 09/05/23 Benzonatate [Tessalon Perles] 100 mg PO TID PRN #21 capsule 09/05/23 predniSONE 50 mg PO DAILY #5 tablet 09/05/23 Ketorolac [Toradol] 10 mg PO Q6HR PRN #15 tab 11/12/23 Ondansetron Odt [Zofran Odt] 4 mg PO Q8HR PRN #15 tab 11/12/23 Allergies Allergy/AdvReac Type Severity Reaction Status Date / Time bee venom protein (honey bee) Allergy Swelling Verified 09/05/23 15:20 Review of Systems ROS Statement: Those systems with pertinent positive or pertinent negative responses have been documented in the HPI. ROS Other: All systems not noted in ROS Statement are negative. Past Medical History Past Medical History: Asthma, Deep Vein Thrombosis (DVT), Fibromyalgia, Osteoarthritis (OA), Rheumatoid Arthritis (RA) Additional Past Medical History / Comment(s): MIGRAINES, DVT LEFT GROIN (2009), PAST HX EXERCISE INDUCED ASTHMA ., HERNIATED DISC, BACK PAIN, ARTHRITIS IN BACK & KNEES., CHILDHOOD R.A History of Any Multi-Drug Resistant Organisms: None Reported Past Surgical History: Adenoidectomy, Breast Surgery, Orthopedic Surgery, Tonsillectomy, Tubal Ligation Additional Past Surgical History / Comment(s): BREAST Bx, MULTIPLE BILAT KNEE SURGERIES., LEFT SHOULDER SURGERY, reconstructive right knee surg. x2 Past Anesthesia/Blood Transfusion Reactions: Postoperative Nausea & Vomiting (PONV) Past Psychological History: Anxiety, Depression Smoking Status: Former smoker Past Alcohol Use History: Rare Past Drug Use History: None Reported - Past Family History Mother Family Medical History: No Reported History, Hypertension General Exam Limitations: no limitations General appearance: alert, in no apparent distress Head exam: Present: atraumatic, normocephalic, normal inspection Eye exam: Present: normal appearance, PERRL, EOMI. Absent: scleral icterus, conjunctival injection, periorbital swelling Respiratory exam: Present: normal lung sounds bilaterally. Absent: respiratory distress, wheezes, rales, rhonchi, stridor Cardiovascular Exam: Present: regular rate, normal rhythm, normal heart sounds. Absent: systolic murmur, diastolic murmur, rubs, gallop, clicks Neurological exam: Present: alert, oriented X3, CN II-XII intact Psychiatric exam: Present: normal affect, normal mood Skin exam: Present: warm, dry, intact, normal color. Absent: rash Course Vital Signs 11/12/23 11/12/23 12:24 15:26 Temperature 98.3 F 97.9 F Pulse Rate 93 67 Respiratory 18 18 Rate Blood Pressure 109/74 96/70 O2 Sat by Pulse 100 99 Oximetry Medical Decision Making - Medical Decision Making This is a 33-year-old female who presents to the emergency department for a headache. Was pt. sent in by a medical professional or institution? @ -No Did you speak to anyone other than the patient for history? @ -No Did you review nursing and triage notes? @ -Yes, and I agree, it is accurate with regards to the patient's symptoms. Were old charts reviewed? @ -No Differential Diagnosis? @ -Differential Headache: Migraine, tension, cluster, carbon monoxide, central venous thrombosis, pension karma temporal arteritis, acute closure glaucoma, intercranial hemorrhage, mastoiditis, sinusitis, head injury, this is not meant to be an all-inclusive list. EKG interpreted by me (3pts min.)? @ -Not obtained X-rays interpreted by me (1pt min.)? @ -Not obtained CT interpreted by me (1pt min.)? @ -Not obtained U/S interpreted by me (1pt. min.)? @ -Not obtained What testing was considered but not performed? (CT, X-rays, U/S, labs)? Why? @ -None What meds were considered but not given? Why? @ -None Did you discuss the management of the patient with other professionals? @ -No Did you reconcile home meds? @ -No Was smoking cessation discussed for >3mins.? @ -I discussed smoking cessation for greater than 3 minutes. The risk of smoking were discussed with the patient including but not limited to risks of cancer, stroke, coronary artery disease and COPD. Also discussed with patient were multiple methods of quitting smoking. Lastly we discussed the financial cost of smoking. Was critical care preformed (if so, how long)? @ -No Were there social determinants of health that impacted care today? How? (Homelessness, low income, unemployed, alcoholism, drug addiction, transportation, low edu. Level, literacy, decrease access to med. care, correction, rehab)? @ -No Was there de-escalation of care discussed even if they declined? (Discuss DNR or withdrawal of care, Hospice)? @ -No What co-morbidities impacted this encounter? (DM, HTN, Smoking, COPD, CAD, Cancer, CVA, Hep., AIDS, mental health diagnosis, sleep apnea, morbid obesity)? @ -Migraines, smoking Was patient admitted / discharged? @ -Discharged. Patient was not concerned about any testing given that this feels like a typical migraine for her. I'm in agreement with this. She was treated with a migraine cocktail consisting of IV fluids, Toradol, Decadron, Reglan, and Benadryl, and she had resolution of symptoms. Prescription for Toradol and Zofran provided with dosing instructions reviewed for any additional headaches. She was otherwise discharged home in stable condition Undiagnosed new problem with uncertain prognosis? @ -None Drug Therapy requiring intensive monitoring for toxicity (Heparin, Nitro, Insulin, Cardizem)? @ -None Were any procedures done? @ -None Diagnosis/symptom? @ -Headache Acute, or Chronic, or Acute on Chronic? @ -Acute Uncomplicated (without systemic symptoms) or Complicated (systemic symptoms)? @ -Uncomplicated Side effects of treatment? @ -None Exacerbation, Progression, or Severe Exacerbation] @ -Not applicable Poses a threat to life or bodily function? @ -No Return precautions reviewed in depth, the patient is instructed to return to the emergency department with any new, worsening, or concerning symptoms. Patient verbalized understanding. This case was discussed in detail with the attending ED physician, Dr. Powell. Presentation, findings, and treatment plan discussed in detail as well. Disposition Clinical Impression: Migraine headache Disposition: HOME SELF-CARE Instructions (If sedation given, give patient instructions): Acute Headache (ED) Additional Instructions: Return to the emergency department with any new, worsening, or concerning symptoms. Take the Toradol with Tylenol as needed for pain relief. If you choose to take the Toradol, do not take any other anti-inflammatories such as ibuprofen, take one or the other. Take the Zofran up to every 8 hours as needed for nausea and vomiting. Follow up with your primary care provider in 1-2 days. Prescriptions: Ketorolac [Toradol] 10 mg PO Q6HR PRN #15 tab PRN Reason: Pain Ondansetron Odt [Zofran Odt] 4 mg PO Q8HR PRN #15 tab PRN Reason: Nausea And Vomiting Is patient prescribed a controlled substance at d/c from ED?: No Referrals: Hang Beasley [Primary Care Provider] - 1-2 days
[2023-11-12 15:40] VITALS: BP 96/70; PULSE 67; TEMP 97.9
== END 2023-11-12 15:28 | disposition home or self-care (01) ==
LOC: EC 11:40
DX: G43.909 Migraine, unspecified, not intractable, without status migrainosus (principal); J45.909 Unspecified asthma, uncomplicated; Z86.59 Personal history of other mental and behavioral disorders; Z87.891 Personal history of nicotine dependence
CPT/HCPCS: 99283; 96374; 96375 ×3; 96361; J1200; J1100; J2765; J1885

== ENCOUNTER 2024-04-15 21:32 | Emergency (ER) | payer OTHER ==
--- NOTE | 2024-04-15 22:56 | ED ---
General Adult HPI - General Chief complaint: Headache Stated complaint: Migraine,Sore Throat Time Seen by Provider: 04/15/24 22:29 Source: EMS Mode of arrival: ambulatory - History of Present Illness Initial comments: 33-year-old female presenting to the ED with complaints of URI symptoms. Patient states yesterday onset of headache which is consistent with her history of migraines. Reports that is not the worst headache of her life. States today, woke up with myalgias, chills, congestion, sore throat, and "slight" cough. No abdominal pain. No chest pain or shortness of breath. No changes in bowel or bladder habits. No fever. No other complaints at this time. - Related Data Previous Rx's Medication Instructions Recorded EPINEPHrine (Auto Inject) [Epipen] 0.3 mg IM ONCE PRN 1 Days #1 each 06/08/23 Azithromycin [Zithromax Z Pack] 1 tab PO DIRECTED #6 tab 09/05/23 Benzonatate [Tessalon Perles] 100 mg PO TID PRN #21 capsule 09/05/23 predniSONE 50 mg PO DAILY #5 tablet 09/05/23 Ketorolac [Toradol] 10 mg PO Q6HR PRN #15 tab 11/12/23 Ondansetron Odt [Zofran Odt] 4 mg PO Q8HR PRN #15 tab 11/12/23 Ibuprofen [Motrin] 600 mg PO Q8HR PRN #30 tab 04/16/24 Ondansetron Odt [Zofran Odt] 4 mg PO Q8HR PRN #10 tab 04/16/24 Allergies Allergy/AdvReac Type Severity Reaction Status Date / Time bee venom protein (honey bee) Allergy Swelling Verified 09/05/23 15:20 Review of Systems ROS Statement: Those systems with pertinent positive or pertinent negative responses have been documented in the HPI. ROS Other: All systems not noted in ROS Statement are negative. Past Medical History Past Medical History: Asthma, Deep Vein Thrombosis (DVT), Fibromyalgia, Osteoart hritis (OA), Rheumatoid Arthritis (RA) Additional Past Medical History / Comment(s): MIGRAINES, DVT LEFT GROIN (2009), PAST HX EXERCISE INDUCED ASTHMA ., HERNIATED DISC, BACK PAIN, ARTHRITIS IN BACK & KNEES., CHILDHOOD R.A History of Any Multi-Drug Resistant Organisms: None Reported Past Surgical History: Adenoidectomy, Breast Surgery, Orthopedic Surgery, Tonsillectomy, Tubal Ligation Additional Past Surgical History / Comment(s): BREAST Bx, MULTIPLE BILAT KNEE SURGERIES., LEFT SHOULDER SURGERY, reconstructive right knee surg. x2 Past Anesthesia/Blood Transfusion Reactions: Postoperative Nausea & Vomiting (PONV) Past Psychological History: Anxiety, Depression Smoking Status: Current some day smoker Past Alcohol Use History: Occasional Past Drug Use History: None Reported - Past Family History Mother Family Medical History: No Reported History, Hypertension General Exam General appearance: alert, in no apparent distress Eye exam: Present: normal appearance ENT exam: Present: normal oropharynx Neck exam: Present: normal inspection Respiratory exam: Present: normal lung sounds bilaterally Cardiovascular Exam: Present: regular rate, normal rhythm GI/Abdominal exam: Present: soft, normal bowel sounds. Absent: distended, tenderness, guarding, rebound, rigid Extremities exam: Present: normal inspection Back exam: Present: normal inspection Neurological exam: Present: alert, oriented X3 Course Vital Signs 04/15/24 21:51 Temperature 98.5 F Pulse Rate 96 Respiratory 18 Rate Blood Pressure 118/75 O2 Sat by Pulse 99 Oximetry Medical Decision Making - Medical Decision Making Was pt. sent in by a medical professional or institution (, PA, STEAM CLOTHES PRESS OPERATOR, urgent care, hospital, or retirement...) When possible be specific @ -No Did you speak to anyone other than the patient for history (EMS, parent, family, police, friend...)? What history was obtained from this source @ -No Did you review nursing and triage notes (agree or disagree)? Why? @ -I reviewed and agree with nursing and triage notes Were old charts reviewed (outside hosp., previous admission, EMS record, old EKG, old radiological studies, urgent care reports/EKG's, retirement records)? Report findings @ -No old charts were reviewed Differential Diagnosis (chest pain, altered mental status, abdominal pain women, abdominal pain men, vaginal bleeding, weakness, fever, dyspnea, syncope, headache, dizziness, GI bleed, back pain, seizure, CVA, palpatations, mental health, musculoskeletal)? @ -Differential Fever: Pneumonia, viral URI, endocarditis, myocarditis, pericarditis, otitis, sinusitis, peritonsillar Abscess, retropharyngeal Abscess, epiglottitis, peritonitis, appendicitis, Claudia cystitis, diverticulitis, hepatitis, colitis, UTI, PID, TOA, pyelonephritis, prostatitis, epididymitis, meningitis, encephalitis, pulmonary embolism, CVA, thyroid storm, pancreatitis, adrenal crisis, cavernous sinus thrombosis, this is not meant to be an all-inclusive list. EKG interpreted by me (3pts min.). @ -None X-rays interpreted by me (1pt min.). @ -None done CT interpreted by me (1pt min.). @ -None done U/S interpreted by me (1pt. min.). @ -None done What testing was considered but not performed or refused? (CT, X-rays, U/S, labs)? Why? @ -None What meds were considered but not given or refused? Why? @ -None Did you discuss the management of the patient with other professionals (professionals i.e. , PA, STEAM CLOTHES PRESS OPERATOR, lab, RT, psych nurse, hospice social worker, vacuum repairer, teacher, combat information center officer, case coordinator)? Give summary @ -No Was smoking cessation discussed for >3mins.? @ -No Was critical care preformed (if so, how long)? @ -No Were there social determinants of health that impacted care today? How? (Homelessness, low income, unemployed, alcoholism, drug addiction, transportation, low edu. Level, literacy, decrease access to med. care, nursing home, rehab)? @ -No Was there de-escalation of care discussed even if they declined (Discuss DNR or withdrawal of care, Hospice)? DNR status @ -No What co-morbidities impacted this encounter? (DM, HTN, Smoking, COPD, CAD, Cancer, CVA, ARF, Chemo, Hep., AIDS, mental health diagnosis, sleep apnea, morbid obesity)? @ -None Was patient admitted / discharged? Hospital course, mention meds given and route, prescriptions, significant lab abnormalities, going to OR and other p ertinent info. @ -Discharge 33-year-old female presented to the ED with complaints of migraine, and onset of myalgias, chills, congestion, sore throat, and slight cough today. Headache is consistent with her history of headaches and is not the worst headache of her life. Laboratory studies reviewed. CBC is elevated at 14. Chemistry panel largely unremarkable. UA shows no significant evidence of infection. Serology panel negative. Patient reported improvement of symptoms here after IV fluids and analgesia and reports that she would like to go home so she can sleep. Would not like any further testing or to try any other further medications. Discharged home in stable condition with prescription for Zofran. Discussed strict return precautions with patient who verbalized agreement. Undiagnosed new problem with uncertain prognosis? @ -No Drug Therapy requiring intensive monitoring for toxicity (Heparin, Nitro, Insulin, Cardizem)? @ -No Were any procedures done? @ -No Diagnosis/symptom? @ -Migraine, viral URI Acute, or Chronic, or Acute on Chronic? @ -Acute Uncomplicated (without systemic symptoms) or Complicated (systemic symptoms)? @ -Uncomplicated Side effects of treatment? @ -No Exacerbation, Progression, or Severe Exacerbation? @ -No Poses a threat to life or bodily function? How? (Chest pain, [place], [place], pneumonia, PE, COPD, DKA, ARF, appy, cholecystitis, CVA, Diverticulitis, Homicidal, Suicidal, threat to staff... and all critical care pts) @ -No - Lab Data Result diagrams: 04/15/24 21:37 04/15/24 21:37 Lab Results 04/15/24 04/15/24 04/15/24 Range/Units 21:37 21:37 23:17 WBC 14.2 H (3.8-10.6) k/uL RBC 3.92 (3.80-5.40) m/uL Hgb 13.2 (11.4-16.0) gm/dL Hct 38.5 (34.0-46.0) % MCV 98.3 (80.0-100.0) fL MCH 33.7 (25.0-35.0) pg MCHC 34.3 (31.0-37.0) g/dL RDW 12.7 (11.5-15.5) % Plt Count 236 (150-450) k/uL MPV 8.8 Neutrophils % 67 % Lymphocytes % 17 % Monocytes % 11 % Eosinophils % 1 % Basophils % 1 % Neutrophils # 9.4 H (1.3-7.7) k/uL Lymphocytes # 2.4 (1.0-4.8) k/uL Monocytes # 1.6 H (0-1.0) k/uL Eosinophils # 0.1 (0-0.7) k/uL Basophils # 0.1 (0-0.2) k/uL Sodium 136 L (137-145) mmol/L Potassium 4.2 (3.5-5.1) mmol/L Chloride 106 (98-107) mmol/L Carbon Dioxide 28 (22-30) mmol/L Anion Gap 2 mmol/L BUN 16 (7-17) mg/dL Creatinine 0.60 (0.52-1.04) mg/dL Est GFR (CKD-EPI)AfAm >90 (>60 ml/min/1.73 sqM) Est GFR (CKD-EPI)NonAf >90 (>60 ml/min/1.73 sqM) Glucose 87 (74-99) mg/dL Calcium 9.1 (8.4-10.2) mg/dL Total Bilirubin 0.6 (0.2-1.3) mg/dL AST 17 (14-36) U/L ALT 11 (4-34) U/L Alkaline Phosphatase 44 (38-126) U/L Total Protein 6.3 (6.3-8.2) g/dL Albumin 3.8 (3.5-5.0) g/dL Urine Color Yellow Urine Appearance Cloudy H (Clear) Urine pH 6.0 (5.0-8.0) Ur Specific [place] 1.032 (1.001-1.035) Urine Protein 1+ H (Negative) Urine Glucose (UA) Negative (Negative) Urine Ketones Negative (Negative) Urine Blood Negative (Negative) Urine Nitrite Negative (Negative) Urine Bilirubin Negative (Negative) Urine Urobilinogen 2.0 (<2.0) mg/dL Ur Leukocyte Esterase Moderate H (Negative) Urine RBC 3 (0-5) /hpf Urine WBC 3 (0-5) /hpf Ur Squamous Epith Cells 5 H (0-4) /hpf Urine Mucus Many H (None) /hpf Urine HCG, Qual (Not Detectd) Influenza Type A (PCR) (Not Detectd) Influenza Type B (PCR) (Not Detectd) RSV (PCR) (Not Detectd) SARS-CoV-2 (PCR) (Not Detectd) 04/15/24 04/15/24 Range/Units 23:17 23:17 WBC (3.8-10.6) k/uL RBC (3.80-5.40) m/uL Hgb (11.4-16.0) gm/dL Hct (34.0-46.0) % MCV (80.0-100.0) fL MCH (25.0-35.0) pg MCHC (31.0-37.0) g/dL RDW (11.5-15.5) % Plt Count (150-450) k/uL MPV Neutrophils % % Lymphocytes % % Monocytes % % Eosinophils % % Basophils % % Neutrophils # (1.3-7.7) k/uL Lymphocytes # (1.0-4.8) k/uL Monocytes # (0-1.0) k/uL Eosinophils # (0-0.7) k/uL Basophils # (0-0.2) k/uL Sodium (137-145) mmol/L Potassium (3.5-5.1) mmol/L Chloride (98-107) mmol/L Carbon Dioxide (22-30) mmol/L Anion Gap mmol/L BUN (7-17) mg/dL Creatinine (0.52-1.04) mg/dL Est GFR (CKD-EPI)AfAm (>60 ml/min/1.73 sqM) Est GFR (CKD-EPI)NonAf (>60 ml/min/1.73 sqM) Glucose (74-99) mg/dL Calcium (8.4-10.2) mg/dL Total Bilirubin (0.2-1.3) mg/dL AST (14-36) U/L ALT (4-34) U/L Alkaline Phosphatase (38-126) U/L Total Protein (6.3-8.2) g/dL Albumin (3.5-5.0) g/dL Urine Color Urine Appearance (Clear) Urine pH (5.0-8.0) Ur Specific [place] (1.001-1.035) Urine Protein (Negative) Urine Glucose (UA) (Negative) Urine Ketones (Negative) Urine Blood (Negative) Urine Nitrite (Negative) Urine Bilirubin (Negative) Urine Urobilinogen (<2.0) mg/dL Ur Leukocyte Esterase (Negative) Urine RBC (0-5) /hpf Urine WBC (0-5) /hpf Ur Squamous Epith Cells (0-4) /hpf Urine Mucus (None) /hpf Urine HCG, Qual Not Detected (Not Detectd) Influenza Type A (PCR) Not Detected (Not Detectd) Influenza Type B (PCR) Not Detected (Not Detectd) RSV (PCR) Not Detected (Not Detectd) SARS-CoV-2 (PCR) Not Detected (Not Detectd) Disposition Clinical Impression: Migraine, URI (upper respiratory infection) Disposition: HOME SELF-CARE Condition: Good Instructions (If sedation given, give patient instructions): Migraine Headache (ED), Upper Respiratory Infection (ED) Additional Instructions: Please return to the Emergency Department if symptoms worsen or any other concerns. Please follow-up with your primary care provider. Prescriptions: Ibuprofen [Motrin] 600 mg PO Q8HR PRN #30 tab PRN Reason: Pain Ondansetron Odt [Zofran Odt] 4 mg PO Q8HR PRN #10 tab PRN Reason: Nausea Is patient prescribed a controlled substance at d/c from ED?: No Referrals: Hang Beasley [Primary Care Provider] - 1-2 days Time of Disposition: 00:43
[2024-04-15 23:39] LABS: Basophils # (A) 0.1 k/uL (0-0.2); Basophils % (A) 1 %; Eosinophils # (A) 0.1 k/uL (0-0.7); Eosinophils % (A) 1 %; HCT 38.5 % (34.0-46.0); HGB 13.2 gm/dL (11.4-16.0); Lymphocytes # (A) 2.4 k/uL (1.0-4.8); Lymphocytes % (A) 17 %; MCH 33.7 pg (25.0-35.0); MCHC 34.3 g/dL (31.0-37.0); MCV 98.3 fL (80.0-100.0); Mean Platelet Volume 8.8; Monocytes # (A) 1.6 k/uL (0-1.0); Monocytes % (A) 11 %; Neutrophils # (A) 9.4 k/uL (1.3-7.7); Neutrophils % (A) 67 %; Platelet Count 236 k/uL (150-450); RBC 3.92 m/uL (3.80-5.40); RDW 12.7 % (11.5-15.5); WBC 14.2 k/uL (3.8-10.6)
[2024-04-15] MEDS: KETOROLAC 15 MG/ML 1 ML VIAL IVP STA (23:40)
[2024-04-15] MEDS: ONDANSETRON 4 MG/2 ML VIAL IVP STA (23:41)
[2024-04-15] MEDS: ACETAMINOPHEN TAB 500 MG TAB PO STA (23:41)
[2024-04-15 23:42] LABS: Appearance,Urine Cloudy (Clear); Bilirubin,Urine Negative (Negative); Blood,Urine Negative (Negative); Color,Urine Yellow; Glucose,Urine (UA) Negative (Negative); Ketones,Urine Negative (Negative); Leukocyte Esterase,Urine Moderate (Negative); Mucus,Urine Many /hpf; Nitrite,Urine Negative (Negative); Protein,Urine 1+ (Negative); RBC,Urine 3 /hpf (0-5); Specific Gravity,Urine 1.032 (1.001-1.035); Squamous Epithelial Cell,Urine 5 /hpf (0-4); WBC,Urine 3 /hpf (0-5)
[2024-04-15 23:50] LABS: ALT 11 U/L (4-34); AST 17 U/L (14-36); African American GFR (CKD) >90 (>60 ml/min/1.73 sqM); Albumin 3.8 g/dL (3.5-5.0); Alkaline Phosphatase 44 U/L (38-126); Anion Gap 2 mmol/L; Blood Urea Nitrogen 16 mg/dL (7-17); Calcium 9.1 mg/dL (8.4-10.2); Carbon Dioxide 28 mmol/L (22-30); Chloride 106 mmol/L (98-107); Glucose 87 mg/dL (74-99); Non-African American GFR(CKD) >90 (>60 ml/min/1.73 sqM); Potassium 4.2 mmol/L (3.5-5.1); Sodium 136 mmol/L (137-145); Total Bilirubin 0.6 mg/dL (0.2-1.3); Total Protein 6.3 g/dL (6.3-8.2)
[2024-04-16] MEDS: DEXAMETHASONE SOD PHOSPHATE 10 MG/ML 1 ML VIAL IVP STA (01:10)
[2024-04-16] MEDS: ONDANSETRON 4 MG ODT STARTER PACK 2 TAB BTL PO STA (01:10)
[2024-04-16 01:14] VITALS: BP 121/75; PULSE 92; RESP 20; TEMP 98.6
== END 2024-04-16 01:14 | disposition home or self-care (01) ==
LOC: EC 21:32
DX: G43.909 Migraine, unspecified, not intractable, without status migrainosus (principal); J06.9 Acute upper respiratory infection, unspecified; F17.200 Nicotine dependence, unspecified, uncomplicated; Z11.52 Encounter for screening for COVID-19; Z91.030 Bee allergy status
CPT/HCPCS: 36415; 80053; 85025; 81001; 81025; 87636; 99283; 96374; 96375 ×2; J2405; J1885

== ENCOUNTER 2024-10-07 09:01 | Emergency (ER) | payer OTHER ==
[2024-10-07 09:12] VITALS: RESP 18
--- NOTE | 2024-10-07 09:24 | ED ---
General Adult HPI - General Chief complaint: Upper Respiratory Infection Stated complaint: fever,body aches Time Seen by Provider: 10/07/24 09:05 Source: patient, RN notes reviewed, old records reviewed Mode of arrival: ambulatory Limitations: no limitations - History of Present Illness Initial comments: This is a 33-year-old female who presents to the emergency department stating that Sunday she started spiking a fever having a sore throat some pressure in her ears and a cough. Patient states the cough is productive. Patient denies shortness of breath. Patient has chest pain. Patient has abdominal pain patient has nausea vomiting diarrhea. Patient states she did not get the COVID shot she did not get the influenza shot. - Related Data Previous Rx's Medication Instructions Recorded EPINEPHrine (Auto Inject) [Epipen] 0.3 mg IM ONCE PRN 1 Days #1 each 06/08/23 Azithromycin [Zithromax Z Pack] 1 tab PO DIRECTED #6 tab 09/05/23 Benzonatate [Tessalon Perles] 100 mg PO TID PRN #21 capsule 09/05/23 predniSONE 50 mg PO DAILY #5 tablet 09/05/23 Ketorolac [Toradol] 10 mg PO Q6HR PRN #15 tab 11/12/23 Ondansetron Odt [Zofran Odt] 4 mg PO Q8HR PRN #15 tab 11/12/23 Ibuprofen [Motrin] 600 mg PO Q8HR PRN #30 tab 04/16/24 Ondansetron Odt [Zofran Odt] 4 mg PO Q8HR PRN #10 tab 04/16/24 Azithromycin [Zithromax Tri-Yusuf (3 500 mg PO DAILY 3 Days #3 tab 10/07/24 tabs)] Allergies Allergy/AdvReac Type Severity Reaction Status Date / Time bee venom protein (honey bee) Allergy Swelling Verified 09/05/23 15:20 Review of Systems ROS Statement: Those systems with pertinent positive or pertinent negative responses have been documented in the HPI. ROS Other: All systems not noted in ROS Statement are negative. Past Medical History Past Medical History: Asthma, Deep Vein Thrombosis (DVT), Fibromyalgia, Osteoarthritis (OA), Rheumatoid Arthritis (RA) Additional Past Medical History / Comment(s): MIGRAINES, DVT LEFT GROIN (2009), PAST HX EXERCISE INDUCED ASTHMA ., HERNIATED DISC, BACK PAIN, ARTHRITIS IN BACK & KNEES., CHILDHOOD R.A History of Any Multi-Drug Resistant Organisms: None Reported Past Surgical History: Adenoidectomy, Breast Surgery, Hysterectomy, Orthopedic Surgery, Tonsillectomy, Tubal Ligation Additional Past Surgical History / Comment(s): BREAST Bx, MULTIPLE BILAT KNEE SURGERIES., LEFT SHOULDER SURGERY, reconstructive right knee surg. x2 Past Anesthesia/Blood Transfusion Reactions: Postoperative Nausea & Vomiting (PONV) Past Psychological History: Anxiety, Depression Smoking Status: Current some day smoker Past Alcohol Use History: Occasional Past Drug Use History: None Reported - Past Family History Mother Family Medical History: No Reported History, Hypertension General Exam - General Exam Comments Initial Comments: GENERAL: Patient is well-developed and well-nourished. Patient is nontoxic and well- hydrated and is in mild distress. ENT: Neck is soft and supple. No significant lymphadenopathy is noted. Oropharynx is clear. Moist mucous membranes. Neck has full range of motion without eliciting any pain. EYES: The sclera were anicteric and conjunctiva were pink and moist. Extraocular movements were intact and pupils were equal round and reactive to light. Eyelids were unremarkable. PULMONARY: Patient has been minimal crackles in the left base CARDIOVASCULAR: There is a regular rate and rhythm without any murmurs gallops or rubs. ABDOMEN: Soft and nontender with normal bowel sounds. No palpable organomegaly was noted. There is no palpable pulsatile mass. SKIN: Skin is clear with no lesions or rashes and otherwise unremarkable. NEUROLOGIC: Patient is alert and oriented x3. Cranial nerves II through XII are grossly intact. Motor and sensory are also intact. Normal speech, volume and content. Symmetrical smile. MUSCULOSKELETAL: Normal extremities with adequate strength and full range of motion. No lower extremity swelling or edema. No calf tenderness. LYMPHATICS: No significant lymphadenopathy is noted PSYCHIATRIC: Normal psychiatric evaluation. Limitations: no limitations Course Vital Signs 10/07/24 10/07/24 10/07/24 09:02 09:10 09:20 Temperature 98.4 F 99 F Pulse Rate 103 H Respiratory 20 18 Rate Blood Pressure 128/83 O2 Sat by Pulse 98 Oximetry Medical Decision Making - Medical Decision Making Was pt. sent in by a medical professional or institution (, PA, MANAGER MEMBERSHIP, urgent care, hospital, or [place] [facility] facility...) When possible be specific @ -No Did you speak to anyone other than the patient for history (EMS, parent, family, police, friend...)? What history was obtained from this source @ -No Did you review nursing and triage notes (agree or disagree)? Why? @ -I reviewed and agree with nursing and triage notes Were old charts reviewed (outside hosp., previous admission, EMS record, old EKG, old radiological studies, urgent care reports/EKG's, [place] [facility] facility records)? Report findings @ -No old charts were reviewed Differential Diagnosis? @ -Differential Dyspnea: Coronary syndrome, arrhythmia, tamponade, asthma, COPD, pulmonary embolism, pneumonia, pneumothorax, pulmonary effusion, anaphylaxis, diabetic ketoacidosis, flailed chest, pulmonary contusion, diaphragmatic rupture, anemia, neuromuscular, this is not meant to be an all-inclusive list. EKG interpreted by me (3pts min.). @ -As above X-rays interpreted by me (1pt min.). @ -Chest x-ray shows a lower lobe pneumonia CT interpreted by me (1pt min.). @ -None done U/S interpreted by me (1pt. min.). @ -None done What testing was considered but not performed or refused? (CT, X-rays, U/S, labs)? Why? @ -None What meds were considered but not given or refused? Why? @ -None Did you discuss the management of the patient with other professionals (professionals i.e. , PA, MANAGER MEMBERSHIP, lab, RT, psych nurse, certified social workers in health care, surgical services coordinator, teacher, annual giving officer, shelter case manager)? Give summary @ -No Was smoking cessation discussed for >3mins.? @ -No Was critical care preformed (if so, how long)? @ -No Were there social determinants of health that impacted care today? How? (Homelessness, low income, unemployed, alcoholism, drug addiction, transportation, low edu. Level, literacy, decrease access to med. care, assisted, rehab)? @ -No Was there de-escalation of care discussed even if they declined (Discuss DNR or withdrawal of care, Hospice)? DNR status @ -No What co-morbidities impacted this encounter? (DM, HTN, Smoking, COPD, CAD, Cancer, CVA, ARF, Chemo, Hep., AIDS, mental health diagnosis, sleep apnea, morbid obesity)? @ -None Was patient admitted / discharged? Hospital course, mention meds given and route, prescriptions, significant lab abnormalities, going to OR and other pertinent info. @ -Patient received Rocephin and Zithromax in the hospital for her pneumonia. Patient be sent home on Zithromax. Undiagnosed new problem with uncertain prognosis? @ -No Drug Therapy requiring intensive monitoring for toxicity (Heparin, Nitro, Insulin, Cardizem)? @ -No Were any procedures done? @ -No Diagnosis/symptom? @ -Pneumonia Acute, or Chronic, or Acute on Chronic? @ -Acute Uncomplicated (without systemic symptoms) or Complicated (systemic symptoms)? @ -Complicated Side effects of treatment? @ -No Exacerbation, Progression, or Severe Exacerbation? @ -No Poses a threat to life or bodily function? How? (Chest pain, [place], [place], pneumonia, PE, COPD, DKA, ARF, appy, cholecystitis, CVA, Diverticulitis, Homicidal, Suicidal, threat to staff... and all critical care pts) @ -No - Lab Data Lab Results 10/07/24 10/07/24 Range/Units 09:25 09:25 Influenza Type A (PCR) Not Detected (Not Detectd) Influenza Type B (PCR) Not Detected (Not Detectd) RSV (PCR) Not Detected (Not Detectd) SARS-CoV-2 (PCR) Not Detected (Not Detectd) Group A Strep (PCR) NOT DETECTED (Not Detectd) Disposition Clinical Impression: Pneumonia Disposition: HOME SELF-CARE Condition: Good Instructions (If sedation given, give patient instructions): Bacterial Pneumonia (ED) Prescriptions: Azithromycin [Zithromax Tri-Yusuf (3 tabs)] 500 mg PO DAILY 3 Days #3 tab Is patient prescribed a controlled substance at d/c from ED?: No Referrals: Hang Beasley [Primary Care Provider] - 1-2 days Time of Disposition: 10:39
[2024-10-07] MEDS: ACETAMINOPHEN TAB 500 MG TAB PO STA (09:31)
[2024-10-07] MEDS: IBUPROFEN 600 MG TAB PO STA (09:31)
--- NOTE | 2024-10-07 10:29 | XR ---
EXAMINATION TYPE: XR chest 2V DATE OF EXAM: 10/07/2024 9:43 AM COMPARISON: 09/05/2023 CLINICAL INDICATION: Female, 33 years old with history of Difficulty breathing , TECHNIQUE: XR chest 2V view(s) obtained. FINDINGS: The heart size is normal. The pulmonary vasculature is normal. The lungs are clear. IMPRESSION: 1. No acute pulmonary process. [facility], , 10/07/2024 10:27 AM
[2024-10-07] MEDS: cefTRIAXone IN SWFI 1,000 MG/10 ML SYRINGE IVP STA (10:49)
[2024-10-07] MEDS: AZITHROMYCIN 500 MG TAB PO STA (10:49)
[2024-10-07 11:02] VITALS: BP 121/87; PULSE 98; TEMP 98.1
== END 2024-10-07 11:02 | disposition home or self-care (01) ==
LOC: EC 09:01
DX: J18.9 Pneumonia, unspecified organism (principal); F17.200 Nicotine dependence, unspecified, uncomplicated; Z91.030 Bee allergy status
CPT/HCPCS: 87651; 87636; 71046; 99283; 96374; J0696